=== PATIENT | female | born 1950 | race Caucasian/White ===

== ENCOUNTER → 2017-01-08 | Outpatient (CLI) | payer OTHER, MEDICARE ==
[~2017-01-08] MED LIST: ACET-1256 PO; CHOL100010 PO; CLON0.5T3 PO; CYAN10005 PO; LEVO100T84 PO; TRAM-10 PO
[2017-01-08 10:10] LABS: CHOLESTEROL/HDL RATIO 3.1; THYROID STIMULATING HORMONE 1.5 uIu/ml (0.300-4.500)
== END | disposition home or self-care (01) ==
LOC: C.LAB1850 07:49
PROVIDERS: ATTEND Internal Medicine
DX: E03.9 Hypothyroidism, unspecified (principal); E78.5 Hyperlipidemia, unspecified; R73.9 Hyperglycemia, unspecified; E53.8 Deficiency of other specified B group vitamins; E55.9 Vitamin D deficiency, unspecified

== ENCOUNTER → 2017-08-20 | Outpatient (CLI) | payer OTHER, MEDICARE ==
--- NOTE | 2017-08-20 14:32 | MAMMOGRAPHY REPORT ---
BILATERAL DIGITAL SCREENING MAMMOGRAM TOMOSYNTHESIS WITH CAD: 08/20/2017 CLINICAL HISTORY: Routine screening. Patient has no complaints. TECHNIQUE: Bilateral breast tomosynthesis in addition to standard 2D mammography was performed. Curre nt study was also evaluated with a Computer Aided Detection (CAD) system. COMPARISON: Comparison is made to exams dated: 08/17/2016 mammogram, 08/15/2015 mammogram, 4 mammogram, 07/23/2013 mammogram, 07/25/2012 mammogram, and 07/17/2012 mammogram - [facility]. BREAST COMPOSITION: There are scattered areas of fibroglandular density in both breasts. FINDINGS: There is a 6 mm nodular asymmetry in the slightly inferior, middle to posterior right alec st on the MLO view (MLO tomosynthesis slice 19/70), not definitely seen on the CC view but thought to project laterally based on the tomosynthesis localizer bar. Additional spot compression tomosynthes is views and possible ultrasound are recommended although this could represent normal overlapping fib roglandular tissue. There is a stable metallic biopsy marker in the 6:00 left breast and a few scattered benign-appearing calcifications bilaterally. No other suspicious mass, architectural distortion or cluster of microca lcifications is seen. IMPRESSION: ACR BI-RADS CATEGORY 0: INCOMPLETE EVALUATION: NEED ADDITIONAL IMAGING EVALUATION The 6 mm nodular asymmetry in the inferior right breast on the MLO view needs additional evaluation. The patient will be called to schedule an appointment. Approximately 10% of breast cancers are not detected with mammography. A negative mammographic report should not delay biopsy if a clinically suggestive mass is present. Jane Sesay M.D. ay/:08/20/2017 10:06:21 Phlebotomy Technician: Fanny Foley, [facility] letter sent: Addl Imaging 0 BI-RADS Code: ACR BI-RADS Category 0: Incomplete Evaluation: Need Additional Imaging Evaluation
== END | disposition home or self-care (01) ==
LOC: C.MAMM 09:21
PROVIDERS: ATTEND Obstetrics & Gynecology
DX: Z12.31 Encounter for screening mammogram for malignant neoplasm of breast (principal); N64.89 Other specified disorders of breast

== ENCOUNTER → 2017-12-23 | Outpatient (CLI) | payer OTHER, MEDICARE ==
--- NOTE | 2017-12-24 13:04 | MAMMOGRAPHY REPORT ---
UNILATERAL RIGHT DIGITAL DIAGNOSTIC MAMMOGRAM TOMOSYNTHESIS AND TARGETED RIGHT ULTRASOUND: 12/23/2017 CLINICAL HISTORY: Callback from screening mammography for a 6 mm asymmetry in the inferior, middle to posterior right breast on the MLO view. TECHNIQUE: Spot compression right CC and MLO 2D and tomosynthesis images, full-field right MLO 2D and tomosynthesis images were obtained. COMPARISON: Comparison is made to exams dated: 08/20/2017 mammogram, 08/17/2016 mammogram, 5 mammogram, 07/26/2014 mammogram, 07/23/2013 mammogram, and 07/25/2012 mammogram - [facility]. BREAST COMPOSITION: There are scattered areas of fibroglandular density in the right breast. FINDINGS: Initially, spot compression CC and MLO 2D and tomosynthesis images were obtained, which dem onstrated effacement of the previously observed nodular asymmetry in the inferior, middle to posterio r right breast. Given that the screening mammogram was performed 4 months ago, a full field right ML O view was obtained for confirmation. On the full-field view, there is an equal to low-density 5 mm nodular asymmetry, slightly less conspicuous comparing to the July 2017 mammogram. No associated architectural distortion or calcification. No other new suspicious findings are identified in the r ight breast. Further evaluation with ultrasound was performed. Targeted ultrasound was performed in the lateral right breast, approximate 8:00 through 10:00 axes, b ased on the location of slice 15/71 on the tomosynthesis localizer bar. There is a small hypoechoic nodular area in the 8:00 right breast, 6 cm from the nipple, measuring 3.3 x 2.0 x 5.0 mm, in which t he patient reported pain over this area while scanning. This could represent a prominent fat lobule or focal duct ectasia. It is not thought to correlate with the mammographic finding. There is promi nent X shaped focal duct ectasia in the 9:00 right breast which may correlate with the mammographic f inding. No evidence of a suspicious solid or cystic mass. IMPRESSION: ACR-BI-RADS CATEGORY 3: PROBABLY BENIGN, TARGETED ULTRASOUND ACR-BI-RADS CATEGORY 3: PRO BABLY BENIGN Slightly less prominent nodular asymmetry in the inferior, middle to posterior right breast on repeat mammography, and no suspicious sonographic correlate identified. Nevertheless, a short interval fol low-up right diagnostic tomosynthesis mammogram and possible ultrasound is recommended to ensure stab ility in 6 months. These results and recommendations were discussed with the patient at the time of the exam. Approximately 10% of breast cancers are not detected with mammography. A negative mammographic report should not delay biopsy if a clinically suggestive mass is present. Jane Sesay M.D. ay/:12/23/2017 14:01:31 Greeter Guest Services: Fanny KWON(Karlo)(M), [facility] letter sent: Follow Up Recommended 3 BI-RADS Code: ACR-BI-RADS Category 3: Probably Benign Ultrasound BI-RADS: ACR-BI-RADS Category 3: Pr obably Benign
== END | disposition home or self-care (01) ==
LOC: C.MAMM 09:44
PROVIDERS: ATTEND Obstetrics & Gynecology
DX: R92.8 Other abnormal and inconclusive findings on diagnostic imaging of breast (principal); N64.89 Other specified disorders of breast

== ENCOUNTER → 2018-01-06 | Outpatient (CLI) | payer OTHER, MEDICARE ==
--- NOTE | 2018-01-06 10:05 | DIAGNOSTIC IMAGING REPORT ---
CERVICAL SPINE 2 OR 3 VIEWS HISTORY: 67 years-old Female M54.2 Neck pain acute neck pain COMPARISON: Chest radiographs 07/02/2014 TECHNIQUE: 3 views of the cervical spine FINDINGS: Moderate intervertebral disc space narrowing at C3-C4 and C5-C6. There is 3 mm anterolisthesis C4 on C5 with at least moderate multilevel facet arthrosis. No acute fracture identified. 2 mm retrolisthesis C3 on C4. Multilevel uncovertebral spurring. No prevertebral soft tissue swelling. Calcifications of the left neck suggest atherosclerosis of the carotid vasculature. Imaged lung apices appear clear. IMPRESSION: 1. No acute fracture identified. 2. Multilevel endplate spurring, facet arthrosis and intervertebral disc space narrowing as above with 2 mm retrolisthesis C3 on C4 and 3 mm anterolisthesis C4 on C5, likely secondary to long-standing facet disease. The above report was generated using voice recognition software. It may contain grammatical, syntax or spelling errors. Electronically signed by: Reinier Gillespie M.D. 01/06/2018 10:04 AM Dictated Date/Time: 01/06/2018 10:01 AM
== END | disposition home or self-care (01) ==
LOC: C.RAD1850 09:39
PROVIDERS: ATTEND Physician Assistant
DX: M54.2 Cervicalgia (principal)

== ENCOUNTER → 2018-01-07 | Outpatient (CLI) | payer OTHER, MEDICARE ==
[2018-01-07 10:30] LABS: ALBUMIN 3.8 gm/dl (3.4-5.0); ALT/SGPT 23 U/L (12-78); AST/SGOT 16 U/L (15-37); BLOOD UREA NITROGEN 14 mg/dl (7-18); CALCIUM 9.4 mg/dl (8.5-10.1); CARBON DIOXIDE 31 mmol/L (21-32); CHOLESTEROL 202 mg/dl (0-200); CREATININE 0.69 mg/dl (0.60-1.20); GLUCOSE 87 mg/dl (70-99); POTASSIUM 4.1 mmol/L (3.5-5.1); SODIUM 140 mmol/L (136-145); TRANSFERRIN 311 mg/dl (200-360)
[2018-01-07 10:34] LABS: ALKALINE PHOSPHATASE 105 U/L (45-117); LDL CHOLESTEROL CALCULATED 124 mg/dl; TOTAL PROTEIN 7.4 gm/dl (6.4-8.2)
== END | disposition home or self-care (01) ==
LOC: C.LAB1850 08:57
PROVIDERS: ATTEND Internal Medicine
DX: Z11.59 Encounter for screening for other viral diseases (principal); E53.8 Deficiency of other specified B group vitamins; E55.9 Vitamin D deficiency, unspecified; E78.5 Hyperlipidemia, unspecified; R73.9 Hyperglycemia, unspecified; G25.81 Restless legs syndrome

== ENCOUNTER → 2018-02-14 | Outpatient (CLI) | payer OTHER, MEDICARE | END | disposition home or self-care (01) | LOC: C.LAB1850 09:34 | PROVIDERS: ATTEND Internal Medicine | DX: E03.9 Hypothyroidism, unspecified (principal) ==

== ENCOUNTER → 2018-05-14 | Outpatient (CLI) | payer OTHER, MEDICARE ==
[~2018-05-14] MED LIST changes: -CLON0.5T3 PO; +KLN/5 PO
--- NOTE | 2018-05-14 13:01 | DIAGNOSTIC IMAGING REPORT ---
MRI OF THE CERVICAL SPINE WITHOUT IV CONTRAST CLINICAL HISTORY: Cervicalgia. COMPARISON STUDY: Radiographs of the cervical spine dated 01/06/2018. TECHNIQUE: MRI of the cervical spine is performed utilizing various T1 and T2 weighted sequences in the axial and sagittal planes. IV contrast was not administered for this examination. FINDINGS: Cervical spine: Vertebral body height is maintained throughout the cervical spine. There is minimal retrolisthesis at C3-C4 and minimal anterolisthesis at C4-C5. Alignment is otherwise preserved. The spinous processes appear intact. The atlantodental articulation appears maintained. No destructive bony process or marrow edema is seen. Intervertebral discs: Degenerative disc desiccation is seen throughout the cervical spine. Mild loss of height is seen from C3-C4 through C5-C6. Spinal cord: The cervical spinal cord is normal in morphology. There is a 12 mm focus of T2 signal abnormality identified within the right aspect of the cord at C5-C6. No additional foci of signal abnormality are identified in the cervical cord. C2-C3: Unremarkable. C3-C4: A tiny posterior disc osteophyte complex eccentric to the left minimally effaces the ventral subarachnoid space. Uncovertebral and facet arthropathy cause moderate to severe left and mild right neural foraminal stenosis. C4-C5: A minimal posterior disc osteophyte complex is of no consequence. Uncovertebral and facet arthropathy cause severe right and mild left neural foraminal stenosis. C5-C6: A tiny posterior disc osteophyte complex is of no consequence. Uncovertebral and facet arthropathy cause moderate left greater than right neural foraminal stenosis. C6-C7: The central canal and neural foramina are patent. Tiny nerve sheath cysts versus pseudomeningoceles are noted within the neural foramina bilaterally. C7-T1: Unremarkable. Soft tissues: The prevertebral and paraspinous soft tissues are within normal limits. Brain parenchyma: The partially imaged brain parenchyma at the skull base is normal in appearance. IMPRESSION: 1. There is no disc herniation or central canal stenosis. 2. Mild multilevel cervical spondylosis as above. See discussion for detailed level by level analysis. 3. There is a 12 mm focus of signal abnormality identified within the right aspect of the cervical cord at C5-C6. This is of indeterminant etiology and chronicity. This could be related to a remote insult, could represent a demyelinating process such as multiple sclerosis, or could be seen in the setting of Lyme disease. Clinical correlation will be essential. Dictated: 05/14/2018 12:30 PM Transcribed: 05/14/2018 1:01 PM [facility] Electronically signed by: Garrison Mejia M.D. 05/14/2018 1:04 PM Dictated Date/Time: 05/14/2018 12:30 PM
== END | disposition home or self-care (01) ==
LOC: C.MRIBC 11:10
PROVIDERS: ATTEND Orthopaedic Surgery Orthopaedic Surgery of the Spine
DX: M47.12 Other spondylosis with myelopathy, cervical region (principal)

== ENCOUNTER → 2018-05-20 | Outpatient (CLI) | payer OTHER, MEDICARE | END | disposition home or self-care (01) | LOC: C.LAB1850 15:32 | PROVIDERS: ATTEND Internal Medicine | DX: M25.50 Pain in unspecified joint (principal) ==

== ENCOUNTER 2019-02-06 06:31 | Inpatient (IN) ==
--- NOTE | 2019-01-19 11:01 | Anesthesiology Consultation ---
Date of Service January 19, 2019 Assessment & Plan (1) Encounter for pre-operative examination: History Surgery Operation Date: 02/06/19 12:10 Proposed Procedures p Left Total Shoulder Arthroplasty - Gene Lawson DO Height/Weight Height: 5 ft 3 in Weight: 86.183 kg Allergies Allergy/AdvReac Type Severity Reaction Status Date / Time aspirin Allergy Severe Chest Pain Verified 01/14/19 07:51 hydrocodone Allergy Mild RASH Verified 01/14/19 07:51 Medications Home Medications Medication Instructions Recorded Confirmed Last Taken acetaminophen [Tylenol 8 Hour] 650 mg PO Q12H PRN 01/14/19 01/14/19 Unknown cholecalciferol (vitamin D3) 5,000 unit PO QAM 01/14/19 01/14/19 Unknown [Vitamin D3] clonazepam 0.5 mg PO HS PRN 01/14/19 01/14/19 Unknown levothyroxine 100 mcg PO 6XWK 01/14/19 01/14/19 Unknown tramadol 25 mg PO BID 01/14/19 01/14/19 Unknown Social History Smoking Status: Never smoker Do You Dip or Chew Tobacco: No Hx Alcohol Use: Yes Alcohol type: wine alcohol intake frequency: a few times a month Hx Substance Use: No substance use type: does not use Review of Systems Patient denies chest pain, shortness of breath, dyspnea on exertion, joint pain, reflux, cough, wheezing, palpitations. Physical Exam Vital Signs BP: P: R: T: SPO2:
--- NOTE | 2019-01-19 11:04 | PAT Medication Instructions ---
Medication Instructions Date of Service January 19, 2019 Home Medications acetaminophen [Tylenol 8 Hour] 650 mg PO Q12H as needed cholecalciferol (vitamin D3) 5,000 unit PO QAM clonazepam 0.5 mg PO HS as needed levothyroxine 100 mcg PO 6XWK tramadol 25 mg PO BID DO NOT take the morning of surgery cholecalciferol (vitamin D3) 5,000 unit PO QAM Take morning of surgery With a small sip of water, OTHERWISE NOTHING TO EAT OR DRINK AFTER MIDNIGHT: acetaminophen [Tylenol 8 Hour] 650 mg PO Q12H as needed levothyroxine 100 mcg PO 6XWK tramadol 25 mg PO BID (stop 4 hours before surgery) Take evening before surgery acetaminophen [Tylenol 8 Hour] 650 mg PO Q12H as needed clonazepam 0.5 mg PO HS as needed tramadol 25 mg PO BID Other Notes If you have any questions please call us at [phone] or [phone] or [phone] or [phone]
--- NOTE | 2019-01-19 11:54 | Anesthesiology Consultation ---
Date of Service January 19, 2019 Assessment & Plan (1) Encounter for pre-operative examination: Chart Review Chart Review: Acceptable Risk for Surgery and Patient seen in Pre Admission Testing Teaching & Discussion Pre-Anesthesia Teaching/Discussion Notes: Instructed NPO after midnight before surgery,except medications with 15 cc of water. Medication instructions provided according to the PAT guidelines. History Surgery Operation Date: 02/06/19 12:10 Proposed Procedures p Left Total Shoulder Arthroplasty - Gene Lawson, Height/Weight Height: 5 ft 3 in Weight: 92 kg Allergies Allergy/AdvReac Type Severity Reaction Status Date / Time aspirin Allergy Severe Chest Pain Verified 01/14/19 07:51 hydrocodone Allergy Mild RASH Verified 01/14/19 07:51 Medications Home Medications Medication Instructions Recorded Confirmed Last Taken acetaminophen [Tylenol 8 Hour] 650 mg PO Q12H PRN 01/14/19 01/14/19 Unknown cholecalciferol (vitamin D3) 5,000 unit PO QAM 01/14/19 01/14/19 Unknown [Vitamin D3] clonazepam 0.5 mg PO HS PRN 01/14/19 01/14/19 Unknown levothyroxine 100 mcg PO 6XWK 01/14/19 01/14/19 Unknown tramadol 25 mg PO BID 01/14/19 01/14/19 Unknown Past Medical History Medical History Obesity Cancer 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 Hypothyroidism Osteoarthritis Restless leg syndrome Past Family History Family History Brother Family history of diabetes mellitus Mother Family history of diabetes mellitus Past Surgical History Surgical History H/O foot surgery RT FOOT SURGERY WITH HARDWARE History of bilateral tubal ligation History of colonoscopy History of dilatation and curettage History of tonsillectomy History of tooth extraction History of total abdominal hysterectomy and bilateral salpingo-oophorectomy History of total hip arthroplasty RT History of total knee replacement RT/LEFT Past Anesthesia History No Family Hx of Anesthesia Complications and Other Awareness with knee surgery (2002); no similar issues with other surgeries. History of PONV No Motion Sickness Screening History of Motion Sickness: Yes Social History Smoking Status: Never smoker Do You Dip or Chew Tobacco: No Hx Alcohol Use: Yes Alcohol type: wine alcohol intake frequency: a few times a month Hx Substance Use: No substance use type: does not use Exercise / Class Metabolic Activity III < 4 Walking/Shop/Light housework (USES CANE PRN) Review of Systems Patient denies chest pain, shortness of breath, reflux, cough, wheezing, palpitations. Physical Exam Vital Signs VITALS BP 142/57 P 61 TEMP 97.4 SP02 99%RA RESP 16 PHYSICAL Full neck and c-spine range of motion. Full TMJ range of motion. TMD 3 finger breaths Mallampati Score 2 Dentition: upper front veneers Lungs: clear throughout to auscultation Cardiac: regular rate and rhythm, II/ systolic murmur Spine: normal Carotid arteries: negative bruit Extremities: no edema Testing Electrocardiogram Date: 01/19/19 Findings: + NSR @ (63) Chest X-Ray Date: 01/19/19 Findings: + NAD Mitral annular calcifications are noted. Stress Test Date: 05/27/13 Type: DSE Rest ECHO: Mild MR/TR. Mild LAD. LVEF 60%. Stress ECHO: Negative DSE for myocardial ischemia at 98% MPHR. No chest pain. Laboratory Results 01/19/19 11:46 01/19/19 11:40 Blood Type B Negative 01/19/19 11:46 Antibody Screen NEGATIVE 01/19/19 11:46 PT 10.3 Seconds (9.0-12.0) 01/19/19 11:46 INR 1.0 (0.9-1.1) 01/19/19 11:46 APTT 26.9 Seconds (21.0-31.0) 01/19/19 11:46 Urine Color Yellow 01/19/19 Unknown Urine Appearance Clear (Clear) 01/19/19 Unknown Urine pH 6.5 (4.5-7.5) 01/19/19 Unknown Ur Specific [place] 1.005 (1.000-1.030) 01/19/19 Unknown Urine Protein Negative (Negative) 01/19/19 Unknown Urine Glucose (UA) Negative (Negative) 01/19/19 Unknown Urine Ketones Negative (Negative) 01/19/19 Unknown Urine Nitrite Negative (Negative) 01/19/19 Unknown Ur Leukocyte Esterase Negative (Negative) 01/19/19 Unknown
[2019-01-19 12:10] LABS: Basophils # (auto) 0.01 K/uL (0-0.2); Basophils % (auto) 0.2 %; Eosinophils % (auto) 1.8 %; Hematocrit (blood only) 39.7 % (37-47); Hemoglobin 13.6 g/dL (12.0-16.0); Immature Granulocytes # (auto) 0.01 K/uL (0.00-0.02); Immature Granulocytes % (auto) 0.2 %; Lymphocytes # (auto) 1.58 K/uL (1.2-3.4); Lymphocytes % (auto) 28.1 %; Mean Corpuscular Hgb Conc 34.3 g/dL (32-36); Mean Corpuscular Volume 93.4 fL (80-100); Mean Platelet Volume 10.5 fL (7.4-10.4); Monocytes # (auto) 0.38 K/uL (0.11-0.59); Monocytes % (auto) 6.7 %; Neutrophils # (auto) 3.55 K/uL (1.4-6.5); Platelet Count 213 K/uL (130-400); RDW Coefficient of Variation 12.9 % (11.5-14.5); RDW Standard Deviation 43.7 fL (36.4-46.3); Red Blood Count 4.25 M/uL (4.2-5.4); White Blood Count 5.63 K/uL (4.8-10.8)
[2019-01-19 12:14] LABS: Appearance Urine Clear (Clear); Bilirubin Urine Negative (Negative); Blood Urine Negative (Negative); Color Urine Yellow; Glucose Urine UA Negative (Negative); Ketones Urine Negative (Negative); Leukocyte Esterase Urine Negative (Negative); Nitrite Urine Negative (Negative); Protein Urine Negative (Negative); Specific Gravity Urine 1.005 (1.000-1.030); Urobilinogen Urine Negative (Negative); pH Urine 6.5 (4.5-7.5)
[2019-01-19 12:20] LABS: BUN Creatinine Ratio 19.4 (10-20); Calcium 9.7 mg/dl (8.5-10.1); Creatinine Clr Calc Pharmacy 80.6 ml/min; Est GFR (African American) 101.7; Est GFR (Non-African American) 87.8
[2019-01-19 12:27] LABS: Partial Thromboplastin Time 26.9 Seconds (21.0-31.0); Prothrombin Time 10.3 Seconds (9.0-12.0)
--- NOTE | 2019-01-19 12:29 | XRay Report ---
XR chest Pre-admission PA/Lat HISTORY: 68 years-old Female pat preoperative exam COMPARISON: Chest radiograph 07/02/2014 TECHNIQUE: PA and lateral views of the chest FINDINGS: Cardiac mediastinal and hilar silhouettes are within normal limits. No pneumothorax, pleural effusion , focal airspace consolidation or overt pulmonary edema. Mitral annular calcifications are noted. Deg enerative changes of the shoulders and spine. IMPRESSION: No acute process. The above report was generated using voice recognition software. It may contain grammatical, syntax o r spelling errors. Electronically signed by: Reinier Gillespie M.D. 01/19/2019 12:28 PM
--- OUTSIDE RECORDS SUMMARY | 2019-01-26 15:05 | External Medical Summary | Continuity of Care Document ---
:1950 Author Name Dorie Hightower, Provider Address Unavailable Unavailable , Care Team Providers Name Role Phone Kunal So LIU Unavailable [email or web address] Kim Hightower, Sola Unavailable [email or web address] Tootie Hightower, Puja Unavailable Keshavo [email or web address] Joslyn ALSTON, Jojo Unavailable [email or web address] Jamin Hightower, Yaa Abarca Unavailable [email or web address] [email or web address] NAPOLEON JARAMILLO M.D., V Unavailable Unavailab le Unavailable Unavailable Unavailable Problems Nephrolithiasis (592.0) (N20.0) Obesity (278.00) (E66.9) Rosacea (695.3) (L71.9) Anxiety disorder (300.00) (F41.9) Encounter for routine gynecological exam ination with Papanicolaou smear of cervix (V72.31) (Z01.419) Disc degeneration, lumbar (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) Cyst of kidney, acquired (593.2) (N28.1) Osteoarthritis (715.90) (M19.90) Osteoporosis screening (V82.81) (Z13.820) Pain in both feet (729.5) (M79.671) Chronic constipation (564.00) (K59.09) Gait disturbance (781.2) (R26.9) Hyperglycemia (790.29) (R73.9) Inconclusive mammogram (793.82) (R92.2) Deformity of both feet (736.70) (M21.961) Arthralgia of multiple sites (719.49) (M25.50) Neck pain (723.1) (M54.2) Restless legs syndrome (333.94) (G25.81) Numbness (782.0) (R20.0) Demyelinating disorder (341.9) (G37.9) Abnormal MRI, cervical spine (793.7) (R93.7) Left shoulder pain (719.41) (M25.512) Neck stiffness (723.5) (M43.6) Elevated blood pressure reading without diagnosis of hypertension (796.2) (R03.0) Colon polyps (211.3) (K63.5) Influenza vaccine needed (V04.81) (Z23) 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 Katja Neville Start: 19-Jan-2019 Quantity: 10 Refills: 0 D-3-5 5000 UNIT Oral Capsule; once daily with heaviest meal of the day Katja Sommers Start: 12-Jan-2015 Quantity: 30 Ralitsa Refills: 5 traMADol HCl - 50 MG Oral Tablet; TAKE H CUSTODIAL TABLET BY MOUTH AT BEDTIME AND HALF TABLET IN THE MORNING Katja Sommers Start: 12-Apr-2014 Quantity: 30 [place] Refills: 0 Tylenol Extra Strength TABS; Take 650mg every 12h Napoleon Venegas M.D. Start: 12-Apr-2014 Refills: 0 [place] clonazePAM 0.5 MG Oral Tablet; TAKE 1/2 to 1 TABLET D AILY NEEDED FOR RLS Katja Sommers Quantity: 30 [place]al[place]a Refills: 0 MiraLax Oral Powder; MIX 1 CAPFUL IN 8 O UNCES OF WATER AND DRINK AT BEDTIME NEEDED FOR CONSTIPATION. Katja Alvarez Start: 25-Jul-2011 Refills: 0 Levothyroxine Sodium 100 MCG Oral Tablet; take 1 table t by mouth once daily Katja Sommers Start: 23-Jun-2018 Quantity: 90 Ralitsa Refills: 2 PEG-3350/Electrolytes 236 GM Oral Soluti on Reconstituted; MIX AND DRINK PER SPLIT DOSE INSTRUCTIONS NOE Syed Start: 19-Jan-2019 Quantity: 1 Refills: 0 Procedures Ultra TSH Date: 26-Jan-2019 Vitamin B12 Date: 26-Jan-2019 Vitamin D, 25-Hydroxy Date: 26-Jan-2019 History of Tubal Ligation Status: Comple alexandra History of Knee Replacement Status: Comp leted History of Total Hip Replacement Status: Completed History of Bx Breast Percutan Needle Core Use Status: Completed Imag Guide (Stereotactic) History of Knee Replacement Status: Comp leted History of Tonsillectomy Status: Complet ed History of Oral Surgery Tooth Extraction Status: Completed History of Dilation And Curettage Status : Completed History of Laparoscopy With Total Hysterectomy Status: Completed History of Salpingo-oophorectomy Bilateral Status: Completed Immunizations Tdap (Adacel) On: 07-Jan-2008 0:00 Influenza On: 23-Jul-2012 10:15 Lot #: [id number], [employer] Pneumococcal polysaccharide vaccine, 23 valent On: 14-Jun-20 14 13:29 Lot #: [id number], [employer] Fluzone High-Dose Intramuscular Suspension On: 14-Jul-2015 9 :04 Lot #: [id number], [employer] Zostavax 39702 UNT/0.65ML Subcutaneous Solution Recons tituted On: 15-Aug-2015 15:18 Lot #: [id number], [employer] Fluzone High-Dose Intramuscular Suspension On: 17-Aug-2016 1 5:51 Lot #: [id number], [employer] Fluzone High-Dose Intramuscular Suspension On: 2016 Prevnar 13 Intramuscular Suspension On: 14-Feb-2018 9:24 Lot #: [id number], [employer] [place]. Fluzone High-Dose Intramuscular Suspension On: 31-Jul-2018 16 :04 Lot #: [id number], [employer] Family History Brother Family history of Acute Myocardial Infarction (V17.3) Status : Active Family history of Acute Myocardial Infarction (V17.3) Status : Active Family history of CABG Status: Active Family history of Coronary Artery Disease (V17.49) Status: A ctive Family history of Diabetes Mellitus (V18.0) Status: Active Family history of Coronary Artery Disease (V17.49) Status: A ctive Family history of Diabetes Mellitus (V18.0) Status: Active Mother Family history of Acute Myocardial Infarction (V17.3) Status : Active Family history of Alzheimer Disease Status: Active Family history of Hypertension (V17.49) Status: Active Father Family history of Alzheimer Disease Status: Active Social History - Smoking Status Never smoker Plan of Treatment Planned Encounters Appointment; Jojo Jorgensen DO Start: 14-Aug-2019 9:00 Re quest Planned Observations Planned Goals not documented Results CBC With DIFF (Pending) Laboratory: [facility] Laboratory [address] [facility] [address] tel: 19-Jan-2019 11:46 WBC 5.63 K/uL Range: 4.8-10.8 K/u L RBC 4.25 {M/uL} Range: 4.2-5.4 M/uL HEMOGLOBIN 13.6 g/dL Range: 12.0-16.0 g /dL HEMATOCRIT 39.7 % Range: 37-47 % MCV 93.4 fL Range: 80-100 fL MCH 32.0 pg Range: 25-34 pg MEAN CORPUSCULAR HGB CONC 34.3 Range: 3 2-36 g/dL g/dL RED CELL DISTRIBUTION WIDTH SD Range: 3 6.4-46.3 fL 43.7 fL RED CELL DISTRIBUTION WIDTH CV Range: 1 1.5-14.5 % 12.9 % PLATELET COUNT 213 K/uL Range: 130-400 K/uL MEAN PLATELET VOLUME 10.5 fL Range: 7.4 -10.4 fL (above high threshold) NEUT % 63.0 % Range: % LYMPH % 28.1 % Range: % MONO % 6.7 % Range: % EOS % 1.8 % Range: % BASO % 0.2 % Range: % IG% 0.2 % Range: % Comments: IG paramet er reflects the combination of Metas, Myelos andPromyelocytes. Neutrophils (Auto) 3.55 K/uL Range: 1. 4-6.5 K/uL LYMPH ABS # 1.58 K/uL Range: 1.2-3.4 K/ uL MONO ABS # 0.38 K/uL Range: 0.11-0.59 K /uL EOS ABS # 0.10 K/uL Range: 0-0.5 K/uL BASO ABS # 0.01 K/uL Range: 0-0.2 K/uL IG# 0.01 K/uL Range: 0.00-0.02 K/ uL Urine rflx Microscopic Laboratory: [facility] Laboratory [address] Com ments: Asha Zuniga (Pending) [address]. [facility] [address] tel: 19-Jan-2019 0:00 Urine Color Yellow Urine Appearance Clear Range: Clear Urine Specific [employer] 1.005 Range: 1.0 00-1.030 Urine Ph 6.5 Range: 4.5-7.5 Urine Protein(Dipstick) Negative Range: Negative Urine Glucose(Dipstick) Negative Range: Negative Urine Ketones Negative Range: Negative Urine Bilirubin Negative Range: Negativ e URINE BLOOD HGB Negative Range: Negativ e Urobilinogen Negative Range: Negative Nitrite Urine Negative Range: Negative Urine Leukocyte Esterase Negative Range: Negative Basic Metabolic Panel Laboratory: [facility] Laboratory [address] (Pending) [address]. [facility] [address] tel: 19-Jan-2019 11:40 SODIUM 141 mmol/L Range: 136-145 mmol /L POTASSIUM 4.0 mmol/L Range: 3.5-5.1 mmo l/L CHLORIDE 105 mmol/L Range: 98-107 mmol/ L CARBON DIOXIDE 30 mmol/L Range: 21-32 m mol/L ANION GAP 6.0 Range: 3-11 BLOOD UREA NITROGEN 14 mg/dl Range: 7-1 8 mg/dl CREATININE 0.70 mg/dl Range: 0.6-1.2 mg /dl Estimated Creatinine Clearance Range: m l/min 80.6 ml/min Comments: Est. Creat inine Clearance (Mod Cockcroft-Gault) for pharmacydosing purposes. Estimated GFR () Comment s: Units: ml/min per 101.7 1.73 meters squaredT he estimated GFR (CKD-E PI equation) has not be en validatedfor inpatie nt settings and may not be an accurate reflectiono f renal function in critical ly ill patients or those withrapidly changing renal function (e.g. SEGUNDO). Estimated GFR (Non- Comments: Uni ts: ml/min per [place]uran) 87.8 1.73 meters squaredT he estimated GFR (CKD-E PI equation) has not be en validatedfor inpatie nt settings and may not be an accurate reflectiono f renal function in critical ly ill patients or those withrapidly changing renal function (e.g. SEGUNDO). BUN/CREATININE RATIO 19.4 Range: 10-20 GLUCOSE 96 mg/dl Range: 70-99 mg/dl CALCIUM 9.7 mg/dl Range: 8.5-10.1 mg/ dl PT/INR (Pending) Laboratory: [facility] Laboratory [address] [facility] [address] tel: 19-Jan-2019 11:46 Prothrombin Time 10.3 {Seconds} Range: 9.0-12.0 Seconds INR 1.0 Range: 0.9-1.1 PTT (Pending) Laboratory: [facility] Laboratory [address] [facility] [address] tel: 19-Jan-2019 11:46 PTT PATIENT 26.9 {Seconds} Range: 21.0- 31.0 Seconds Comments: Therapeuti c APTT range is 46.0 - 66.4 seconds PARTIAL THROMBOPLASTIN RATIO 1.0 X-Ray Chest Preadm Laboratory: [facility] Diagnostic Testing (Pending) Imaging [address] [facility] 19-Jan-2019 12:26 X-Ray Chest Preadm Testing (CXRPRE) [facility] [place] [phone] XRay Report Patient: KENYON BRISCOE Admit Date: 01/19/19 MR#: [id number] Address1: [address] [place] [address] Acct ID:[id number] Address2: Date: 1950 [facility] Zip: [place] [address] Age: 68 Location: ASU Sex: F Room/Bed: Att Phy: Gene Lawson DO Diagnosis: De generative Joint Disorder, Left Shoulder Alissa Phy: RV. Sommers MD Servi ce Date: 01/19/19 Fam Phy: Interpreting Phy: Sim Decker her Admit Phy: Ordering Phy: Gene Lawson DO cc: XR chest Pre-admission PA/Lat HISTORY: 68 years-old Female pat preoperative exam COMPARISON: Chest radiograph 07/02/2014 TECHNIQUE: PA and lateral views of the chest FINDINGS: Cardiac mediastinal and hilar silhouettes are within normal limits. No pneumothorax, pleural effusion, focal airspace consolidation or overt pulmonary edema. Mitral annular calcifications are noted. Degenerative changes of the shoulders and spine. IMPRESSION: No acute process. The above report was generated using voice recognition software. It may contain grammatical, syntaxor spelling errors. Electronically signed by: Reinier Gillespie M.D. 01/19/2019 12:28 PM Dictated: 01/19/19 1226 Transcribed: 01/19/19 1226 Urine Culture (Pending) 19-Jan-2019 0:00 URINE CULTURE CATH ORDERED PROCEDURE : Urine Culture; Speciment : Urine,Clean Catch Urine Culture : More than three types of organisms present, all low countsUrine Culture : mixed probable skin chirag. No further identifications orUrine Culture : sensitivities to follow. Mammo SCREENING BILATERAL Laboratory: [facility] Diagnostic JASSI Imaging [address] [facility] 19-Jan-2019 8:24 SCREENING BILATERAL JASSI [facility], [address] [place] [address], [address] [place], [address] Mammography Report Patient: KENYON BRISCOE Admit Date: 01/19/19 MR#: [id number] Address1: [address] [place] [address] Acct ID:[id number] Address2: Date: 1950 [facility] Zip: [place] [address] Age: 68 Location: MAMMO Sex: F Room/Bed: Att Phy: RV. Sommers MD Diagn osis: ASYMPTOMATIC Alisas Phy: RV. Sommers MD Servi ce Date: 01/19/19 [facility] Phy: Interpreting Phy: Jane landeros MD Admit Phy: Ordering Phy: Puja Corbett MD DICTATED BY: Jane Sesay MD cc: RV. Sommers MD BILATERAL DIGITAL SCREENING MAMMOGRAM TOMOSYNTHESIS WITH CAD: 01/19/2019 CLINICAL HISTORY: Routine screening. Patient has no complaints. TECHNIQUE: Breast tomosynthesis in addition to standard 2D mammography was performed. Current studywas also evaluated with a Computer Aided Detection (CAD) system. COMPARISON: Comparison is made to exams dated: 06/26/2018 mammogram, 12/23/2017 mammogram, 08/20/2017 mammogram, 08/17/2016 mammogram, 08/15/2015 mammogram, and 07/26/2014 mammogram - [facility]. BREAST COMPOSITION: There are scattered areas of fibroglandular density in both breasts. FINDINGS: Stable asymmetries in the lateral right breast and slightly medial subareolar left breast. Scattered benign-appearing microcalcifications and a stable metallic biopsy clip in the 6:00 posterior left breast. No new suspicious mass, architectural distortion or cluster of microcalcifications is seen. IMPRESSION: ACR BI-RADS CATEGORY 1: NEGATIVE There is no mammographic evidence of malignancy. A 1 year screening mammogram is recommended.(01/20/2020) The patient will receive written notification of the results. Some breast cancers are not detected with mammography. A negative mammographic report should not delay biopsy if a clinically suggestive mass is present. Jane Sesay M.D. ay/:01/19/2019 17:04:58 Senior Devops Engineer: RT Ronald(Karlo)(Sabra)(BD), [facility] letter sent: Normal 1/2 BI-RADS Code: ACR BI-RADS Category 1: Negative Signed By: Jane Sesay MD 01/19/19 1704 Created: 01/19/19 0824 Transcribed: 01/19/191703 Chimney Repairer: JORDIN The status of this report is Signed. Draft = Not yet reviewed or approved by Medical Physician. Signed = Reviewed and approved by Medical Physician. Encounters Appointment; Mariaelena Rivera M.D. 13-Aug-2018 11:20 Encounter Diagnosis: Problem not documented Appointment; Puja Sommers, M.D. 31-Jul-2018 15:40 Encounter Diagnosis: Problem not documented Appointment; Brissa Herrera DO 25-Jul-2018 16:20 Encounter Diagnosis: Problem not documented Appointment; Brissa Herrera DO 25-Jun-2018 15:00 Encounter Diagnosis: Problem not documented Appointment; Stefanie Bran PA-C 03-Jun-2018 13:45 Encounter Diagnosis: Problem not documented Appointment; Puja Sommers M.D. 8 8:40 Encounter Diagnosis: Problem not documented Appointment; Stefanie Bran PA-C 06-Jan-2018 9:15 Encounter Diagnosis: Problem not documented Appointment; Stefanie Bran PA-C 24-Dec-2017 9:15 Encounter Diagnosis: Problem not documented Appointment; Puja Sommers M.D. 7 14:20 Encounter Diagnosis: Problem not documented Appointment; Mariaelena Rivera M.D. 12-Aug-2017 8:20 Encounter Diagnosis: Problem not documented Appointment; Stefanie Bran PA-C 26-Jun-2017 15:15 Encounter Diagnosis: Problem not documented Appointment; Puja Sommers M.D. 7 7:40 Encounter Diagnosis: Problem not documented Appointment; Jojo Jorgensen DO 14-Aug-2019 9:00 Encounter Diagnosis: Problem not documented
--- NOTE | 2019-02-04 07:56 | History & Physical Report ---
Date of Service February 04, 2019 Assessment & Plan (1) Primary osteoarthritis of left shoulder: We will proceed with a left total shoulder arthroplasty. Postoperatively she will be placed in a sling and kept in the hospital overnight for postoperative medical management. She plans to use energy physical therapy upon discharge. Present on Admission?: Yes History of Present Illness Chief Complaint: Primary osteoarthritis of the left shoulder Primary Care Provider: Puja Mcrae MD Rita is a pleasant 68-year-old female who is been dealing with chronic left shoulder pain. X-rays do not look too bad. I sent her for an MRI. The MRI did show advanced arthritis of the glenohumeral joint. I have been giving her injections. Unfortunately injections are not helping much. Her shoulder is really bothering her. After long discussions in the office, she has elected to proceed with a left total shoulder arthroplasty. Allergies Allergy/AdvReac Type Severity Reaction Status Date / Time aspirin Allergy Severe Chest Pain Verified 01/28/19 12:08 hydrocodone Allergy Mild RASH Verified 01/28/19 12:08 Home Medications Home Medications Medication Instructions Recorded Confirmed Type acetaminophen [Tylenol 8 Hour] 650 mg PO Q12H PRN 01/14/19 01/28/19 History cholecalciferol (vitamin D3) 5,000 unit PO QAM 01/14/19 01/28/19 History [Vitamin D3] clonazepam 0.5 mg PO HS PRN 01/14/19 01/28/19 History levothyroxine 100 mcg PO 6XWK 01/14/19 01/28/19 History tramadol 25 mg PO BID 01/14/19 01/28/19 History Past Med/Surg History Family History Brother Family history of diabetes mellitus Mother Family history of diabetes mellitus Social History Preferred Language: Ethiopian Communication Ability: Effective Catering Attendant Required: No Beliefs That Will Affect Care: None Current Living Situation: Spouse Other Information That Helps Us Care for You: No Feels Safe at Home: Yes Safety Concerns: Feels Safe At This Time Smoking Status: Never smoker Do You Dip or Chew Tobacco: No Second Hand Exposure: No Tobacco Cessation Education Requested by Patient: No Hx Alcohol Use: Yes Alcohol type: wine Hx Substance Use: No Review of Systems All systems reviewed & are unremarkable except as noted in HPI & below Physical Exam Constitutional: WD/WN, vitals as above Eyes: PERRL, conjunctivae normal, anicteric sclerae ENMT: external ear and nose normal, oropharynx normal Neck: trachea midline, no thyromegaly Respiratory: normal respiratory effort Cardiovascular: RRR, no murmur, no edema Gastrointestinal (Abdomen): normal bowel sounds, soft, nontender, no hepatosplenomegaly Musculoskeletal: Physical examination of the left shoulder reveals decreased range of motion and crepitis throughout. There is good strength with full can testing and external rotation. There is tenderness palpation along the anterior glenohumeral joint line. The right upper extremity is neurovascularly intact. Psychiatric: A+Ox3, euthymic affect Results & Data Diagnostic Findings Radiographs of the left shoulder show very mild osteoarthritis of the glenohumeral joint. MRI of the left shoulder does show advanced osteoarthritis with loss of articular cartilage on both the humeral head and the glenoid.
[~2019-02-06 06:31] MED LIST changes: -ACET-1256 PO; +ACETAMINOPHEN 500 MG TAB PO SCH; +BUPIVACAINE 0.5 % 5 MG/1 ML PF 10ML VIAL ONE; +CEFAZOLIN 2000MG 2,000 MG/15 ML SYR IV SCH; -CHOL100010 PO; -CYAN10005 PO; +FAMOTIDINE 20 MG TAB PO SCH; +GABAPENTIN 300 MG PO SCH; -KLN/5 PO; -LEVO100T84 PO; +LR 15ML/HR IV SCH; +LR 60ML/HR IV SCH; +ROPIVACAINE 0.5% HCL/PF 150 MG, BUPIVACAINE 0.5% MPF 30 ML, EPINEPHrine 30MG/30ML (OR U... INFIL SCH; -TRAM-10 PO; +TRANEXAMIC ACID 1,000 MG **IV Intra-op IV SCH; +TRANEXAMIC ACID 1,000 MG **IV Pre-op IV SCH
[2019-02-06] MEDS ORDERED: MIDAZOLAM HCL 1 MG/ML 2ML VIAL ONE (06:47)
[2019-02-06] MEDS ORDERED: fentaNYL citrate 100 MCG/2 ML VIAL ONE (06:47)
--- NOTE | 2019-02-06 06:51 | History & Physical Bridge Note ---
Date of Service February 06, 2019 History & Physical Bridge Note I have examined the patient, reviewed the History & Physical and in the interval since the performance of the History & Physical I have noted the following changes of clinical significance: no changes noted
[2019-02-06] MEDS ORDERED: POVIDONE-IODINE OP SOLN 30 ML BTL ONE (07:12)
[2019-02-06] MEDS ORDERED: ORTHO JOINT ANESTHETIC ONE (07:12)
--- NOTE | 2019-02-06 07:50 | Anesthesiology Consultation ---
Date of Service February 06, 2019 Assessment & Plan (1) Encounter for pre-operative examination: Chart Review Chart Review: Acceptable Risk for Surgery Consults Requested none ASA ASA2 Proposed Anesthesia Anesthesia Type: General Regional Regional Laterality: Left Site: Interscalene Risk / Benefits Reviewed With: PT / POA / Parent / Guardian, Accepts Plan and Informed Consent Obtained History Surgery Operation Date: 02/06/19 08:50 Proposed Procedures p Left Total Shoulder Arthroplasty - Gene Lawson, Height/Weight Height: 5 ft 3 in Weight: 88.8 kg Allergies Allergy/AdvReac Type Severity Reaction Status Date / Time aspirin Allergy Severe Chest Pain Verified 01/28/19 12:08 hydrocodone Allergy Mild RASH Verified 01/28/19 12:08 Medications Home Medications Medication Instructions Recorded Confirmed Last Taken acetaminophen [Tylenol 8 Hour] 650 mg PO Q12H PRN 01/14/19 02/06/19 02/04/19 cholecalciferol (vitamin D3) 5,000 unit PO QAM 01/14/19 02/06/19 01/30/19 [Vitamin D3] clonazepam 0.5 mg PO HS PRN 01/14/19 02/06/19 01/23/19 levothyroxine 100 mcg PO 6XWK 01/14/19 02/06/19 02/06/19 05:30 tramadol 25 mg PO BID 01/14/19 02/06/19 02/05/19 22:00 Active Medications Generic Name Dose Route Start Last Admin Trade Name Freq PRN Reason Stop Dose Admin Acetaminophen 1,000 mg 02/06/19 06:00 02/06/19 07:00 Tylenol PO 02/06/19 18:00 1,000 mg PREOP KELVIN Administration Famotidine 20 mg 02/06/19 06:00 02/06/19 07:01 Pepcid PO 02/06/19 18:00 20 mg PREOP KELVIN Administration Gabapentin 300 mg 02/06/19 06:00 02/06/19 07:01 Neurontin PO 02/06/19 18:00 300 mg PREOP KELVIN Administration Lactated Ringer's 1,000 mls @ 60 mls/hr 02/06/19 06:00 02/06/19 07:00 Lr IV 02/06/19 22:39 60 mls/hr .[id number] KELVIN Administration NPO Date Last Intake of Fluids: 02/05/19 Time Last Intake of Fluids: 18:00 Date Last Intake of Solids: 02/05/19 Time Last Intake of Solids: 18:00 Past Medical History Medical History Cancer 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 Hypothyroidism Osteoarthritis Restless leg syndrome Obesity Exercise / Class Metabolic Activity III < 4 Walking/Shop/Light housework Past Family History Family History Brother Family history of diabetes mellitus Mother Family history of diabetes mellitus Past Surgical History Surgical History H/O foot surgery RT FOOT SURGERY WITH HARDWARE History of bilateral tubal ligation History of colonoscopy History of dilatation and curettage History of tonsillectomy History of tooth extraction History of total abdominal hysterectomy and bilateral salpingo-oophorectomy History of total hip arthroplasty RT History of total knee replacement RT/LEFT Past Anesthesia History No Hx of Anesthesia Complications and No Family Hx of Anesthesia Complications History of PONV No Hx of PONV and No Hx of Motion Sickness Social History Smoking Status: Never smoker Do You Dip or Chew Tobacco: No Hx Alcohol Use: Yes Alcohol type: wine alcohol intake frequency: a few times a month Hx Substance Use: No substance use type: does not use Physical Exam Vital Signs Last Vital Signs Temp 98.4 F 02/06/19 07:05 Pulse 70 02/06/19 07:05 Resp 18 02/06/19 07:05 BP 150/83 H 02/06/19 07:05 Pulse Ox 97 02/06/19 07:05 ENMT Mouth: no dentition abnormality Thyromental Distance: > or= 3.5 Finger Breadths Mallampati Class: II Neck normal visual inspection Respiratory normal respiratory effort Auscultation: lungs clear to auscultation bilaterally Cardiovascular Rate/Rhythm: regular rate and regular rhythm Testing Electrocardiogram Date: 01/19/19 Findings: + NSR @ (63) Chest X-Ray Date: 01/19/19 Findings: + NAD Mitral annular calcifications are noted. Stress Test Date: 05/27/13 Type: DSE Rest ECHO: Mild MR/TR. Mild LAD. LVEF 60%. Stress ECHO: Negative DSE for myocardial ischemia at 98% MPHR. No chest pain. Laboratory Results 01/19/19 11:46 01/19/19 11:40 Blood Type B Negative 01/19/19 11:46 Antibody Screen NEGATIVE 01/19/19 11:46 PT 10.3 Seconds (9.0-12.0) 01/19/19 11:46 INR 1.0 (0.9-1.1) 01/19/19 11:46 APTT 26.9 Seconds (21.0-31.0) 01/19/19 11:46 Urine Color Yellow 01/19/19 Unknown Urine Appearance Clear (Clear) 01/19/19 Unknown Urine pH 6.5 (4.5-7.5) 01/19/19 Unknown Ur Specific [place] 1.005 (1.000-1.030) 01/19/19 Unknown Urine Protein Negative (Negative) 01/19/19 Unknown Urine Glucose (UA) Negative (Negative) 01/19/19 Unknown Urine Ketones Negative (Negative) 01/19/19 Unknown Urine Nitrite Negative (Negative) 01/19/19 Unknown Ur Leukocyte Esterase Negative (Negative) 01/19/19 Unknown 01/19/19 Unknown Urine Culture - Final Urine,Clean Catch More than three types of organisms present, all low counts mixed probable skin chirag. No further identifications or sensitivities to follow.
[2019-02-06] MEDS ORDERED: fentaNYL citrate 100 MCG/2 ML VIAL IV PRN (07:53)
[2019-02-06] MEDS ORDERED: ATROPINE SULFATE 0.1 MG/ML 10ML SYR IV PRN (07:53)
[2019-02-06] MEDS ORDERED: ePHEDrine sulfate 50 MG/ML AMP IV PRN (07:53)
[2019-02-06] MEDS ORDERED: ONDANSETRON INJ 2 MG/ML 2 ML VIAL IV PRN ×2 (07:53→11:20)
[2019-02-06] MEDS ORDERED: PROPOFOL IV EMULSION 10 MG/ML 20 ML VIAL IV ONE (09:20)
[2019-02-06] MEDS ORDERED: LIDOCAINE HCL 2% 2 ML VIAL/AMP(20MG/ML) INFIL ONE (09:20)
[2019-02-06] MEDS ORDERED: GLYCOPYRROLATE 0.2 MG/ML VIAL ONE (09:20)
[2019-02-06] MEDS ORDERED: DEXAMETHASONE SOD INJ 4 MG/ML VIAL ONE (09:20)
[2019-02-06] MEDS ORDERED: ONDANSETRON INJ 2 MG/ML 2 ML VIAL ONE (09:20)
[2019-02-06] MEDS ORDERED: ROCURONIUM BROMIDE 10 MG/ML 5 ML VIAL ONE (09:20)
[2019-02-06] MEDS ORDERED: NEOSTIGMINE METHYLSULFATE 5 MG/5 ML SYR ONE (09:20)
--- NOTE | 2019-02-06 09:51 | Operative Report ---
Post Operative Report Pre & Post Diagnosis Operation Date: 02/06/19 08:50 Pre-Op Diagnosis: Degenerative Joint Disorder, Left Shoulder Post-Op Diagnosis: Degenerative Joint Disorder, Left Shoulder Procedure Operation Date: 02/06/19 08:50 Actual Procedures p Left Total Shoulder Arthroplasty(Left) - Gene Lawson DO Surgeon Gene Lawson DO Senior Production Manager Gene Patel PAC Estimated Blood Loss 100 Findings Consistent with Post-Op Diagnosis Specimens Left humeral head Complications none Disposition Disposition: Recovery Room Indications Rita is a pleasant 68-year-old female who presented my office with complaints of chronic increasing left shoulder pain. X-rays did not look too bad. I sent her for an MRI of her shoulder and the MRI showed advanced osteoarthritis. I gave her multiple injections but unfortunately the injections did not last very long. She elected to proceed with a left total shoulder arthroplasty. Description of Procedure Implants used: I used a Biomet Comprehensive total shoulder arthroplasty system with a size 7 press fit mini humeral stem, a size 42 x 18 eccentric humeral head, and a small size glenoid with a Regenerex peg. The glenoid was cemented in place with Palacos G cement. The patient arrived at [facility] for the above procedure. There were seen in the preoperative holding area and the operative extremity was identified and signed. They were given a preoperative antibiotic and an interscalene nerve block. They were taken back to the operating room, laid on table in supine position, and put under general anesthesia. They were then put into the beachchair position. The shoulder was then prepped and draped in sterile fashion. A timeout was done and the patient in the operative extremity was properly identified. A deltopectoral approach was used. Dissection was taken down through the fascia and the deltoid was retracted laterally and the conjoined tendon was retracted medially. The anterior shoulder was exposed. The long head of the biceps tendon was tenodesed to the upper border of the pectoralis major. The subscapularis was then released off the lesser tuberosity with a centimeter of cuff tissue remaining. The inferior capsule was released and the humeral head was dislocated. The rotator cuff was inspected and intact. A canal finding reamer was sent down the center of the humeral canal. Sequential reaming up to a size 7 reamer was done. Offset reamer a proximal humeral resection guide was placed. The proximal humerus was resected at 135 of inclination and 30 of retroversion. Inferior osteophytes were then removed and the glenoid was exposed. Time was spent doing an appropriate labral release. The glenoid measured to be a size small. A 3.2 mm Steinmann pin was placed in the central hole of the glenoid vault pin guide. The glenoid was then reamed with a propeller reamer. The central post cutter was then used to prepare for the central boss. The cannulated peripheral peg drill guide was then placed and 3 peg holes were drilled. The final size small glenoid was then cemented in place with Palacos G cement. Surrounding soft tissues were then injected with 100 cc of an orthopedic pain control cocktail. Once cement had dried the proximal humerus was once again exposed. Sequential broaching of the humerus up to a size 7 broach was done. Off that broach a size 42 x 18 eccentric humeral head was trialed. The shoulder was then reduced, brought through a full range of motion and felt to be stable. The shoulder was then dislocated and the broach was removed. The final size 7 mini humeral stem implant was then impacted into place. A size 42 x 18 eccentric humeral head was then impacted onto the humeral stem. The shoulder was then reduced and once again brought through a full range of motion and felt to be stable. The subscapularis was then tenodesed back to the lesser tuberosity with transosseous FiberWire sutures and side to side sutures with the arm in 45 of external rotation. 2 sutures were placed in the lateral rotator interval. A dilute betadyne lavage was then done for 3 minutes. The joint was then irrigated with normal saline solution. Hemostasis was obtained. The skin was then closed with 2-0 Vicryl, 3-0V lock suture, and lea. A soft dressing was placed as well as a regular arm sling. The patient was then extubated and transferred to a hospital bed. There were taken to the postanesthesia care unit in stable condition. The tolerated the procedure well. I attest to the content of the Intraoperative Record and any orders documented therein. Any exceptions are noted below.
--- NOTE | 2019-02-06 10:29 | XRay Report ---
XR shoulder LT min 2V routine HISTORY: 68 years-old Female Post shoulder surgery left shoulder total joint arthroplasty COMPARISON: Chest radiograph 01/19/2019 TECHNIQUE: 2 views of the left shoulder FINDINGS: Left shoulder total joint arthroplasty demonstrates satisfactory alignment. Overlying skin lea ar e noted along with expected postsurgical soft tissue swelling and deep tissue air. No acute fracture or retained foreign body. IMPRESSION: Left shoulder total joint arthroplasty demonstrates satisfactory alignment. The above report was generated using voice recognition software. It may contain grammatical, syntax o r spelling errors. Electronically signed by: Reinier Gillespie M.D. 02/06/2019 10:27 AM
[2019-02-06] MEDS ORDERED: NALOXONE HCL 0.4 MG/1 ML VIAL/CARP IV PRN (11:20)
[2019-02-06] MEDS ORDERED: METOCLOPRAMIDE HCL INJ 5 MG/ML 2 ML VIAL IV PRN (11:20)
[2019-02-06] MEDS ORDERED: HYDROmorphone INJ 0.5 MG/0.5 ML SYR IV PRN (11:20)
[2019-02-06] MEDS ORDERED: clonazePAM 0.5 MG TAB PO PRN (11:20)
[2019-02-06] MEDS ORDERED: TRAMADOL HCL 50 MG TABLET PO PRN (11:20)
[2019-02-06] MEDS ORDERED: BISACODYL 10 MG SUPP PR PRN (11:20)
[2019-02-06] MEDS ORDERED: SODIUM CHLORIDE 0.9% 1000ML 1,000 ML IV SCH (11:20)
[2019-02-06] MEDS ORDERED: MAGNESIUM HYDROXIDE SUSP 30 ML UDC PO PRN (11:20)
--- NOTE | 2019-02-06 13:07 | Anesthesiology Progress Note ---
Date of Service February 06, 2019 Anesthesia Post Procedure Vital Signs Vital Signs: Temp Pulse Pulse Pulse Resp BP BP 02/06/19 12:00 97.3 F L 58 L 16 151/80 H 02/06/19 11:30 97.3 F L 60 16 145/81 H 02/06/19 11:00 97.3 F L 64 16 150/85 H 02/06/19 10:55 59 L 14 02/06/19 10:51 58 L 12 145/72 H 02/06/19 10:50 59 L 12 02/06/19 10:46 61 14 151/75 H 02/06/19 10:40 64 16 156/77 H 02/06/19 10:36 64 15 153/76 H 02/06/19 10:35 63 13 02/06/19 10:31 67 20 152/77 H 02/06/19 10:25 65 15 156/77 H 02/06/19 10:22 69 14 155/78 H 02/06/19 10:20 74 21 02/06/19 10:16 83 24 158/84 H 02/06/19 10:12 97.2 F L 86 93 H 21 152/87 H 152/87 H 02/06/19 07:05 98.4 F 70 18 150/83 H Pulse Ox 02/06/19 12:00 96 02/06/19 11:30 96 02/06/19 11:00 99 02/06/19 10:55 98 02/06/19 10:51 98 02/06/19 10:50 99 02/06/19 10:46 98 02/06/19 10:40 98 02/06/19 10:36 99 02/06/19 10:35 98 02/06/19 10:31 100 02/06/19 10:25 99 02/06/19 10:22 100 02/06/19 10:20 100 02/06/19 10:16 100 02/06/19 10:12 100 02/06/19 07:05 97 Pain Intensity Left Shoulder: Pain Intensity: 0 Transfer of Care Handoff Completed per policy Notes Mental Status: alert / awake / arousable and participated in evaluation Patient Amnestic to Procedure: Yes Nausea / Vomiting: adequately controlled Pain: adequately controlled Airway Patency, RR, SpO2: stable & adequate BP & HR: stable & adequate Hydration State: stable & adequate Anesthetic Complications: no major complications apparent and Pt Satisfied with anesthetic care
[2019-02-06] MEDS: ACETAMINOPHEN 500 MG TAB PO SCH ×2 (13:32→20:42)
[2019-02-06] MEDS: KETOROLAC TROMETHAMINE 15 MG/ML VIAL IV SCH ×3 (13:33→23:19)
[2019-02-06] MEDS: LEVOTHYROXINE SODIUM 100 MCG TABLET PO SCH (13:33)
[2019-02-06] MEDS: CEFAZOLIN 2000MG 2,000 MG/15 ML SYR IV SCH ×2 (15:26→23:19)
[2019-02-06] MEDS: DOCUSATE SODIUM 100 MG CAP PO SCH (20:42)
[2019-02-06] MEDS ORDERED: SENNA 8.6 MG TAB PO SCH (21:00)
[2019-02-07] MEDS: KETOROLAC TROMETHAMINE 15 MG/ML VIAL IV SCH (05:16)
[2019-02-07] MEDS: LEVOTHYROXINE SODIUM 100 MCG TABLET PO SCH (05:16)
[2019-02-07] MEDS: ACETAMINOPHEN 500 MG TAB PO SCH (05:17)
[2019-02-07 06:08] LABS: Basophils # (auto) 0.01 K/uL (0-0.2); Basophils % (auto) 0.1 %; Eosinophils # (auto) 0.01 K/uL (0-0.5); Eosinophils % (auto) 0.1 %; Hematocrit (blood only) 36.4 % (37-47); Hemoglobin 13.1 g/dL (12.0-16.0); Immature Granulocytes # (auto) 0.04 K/uL (0.00-0.02); Immature Granulocytes % (auto) 0.3 %; Lymphocytes # (auto) 1.19 K/uL (1.2-3.4); Lymphocytes % (auto) 9.4 %; Mean Corpuscular Volume 90.3 fL (80-100); Mean Platelet Volume 10.3 fL (7.4-10.4); Monocytes # (auto) 0.82 K/uL (0.11-0.59); Monocytes % (auto) 6.5 %; Neutrophils # (auto) 10.55 K/uL (1.4-6.5); Neutrophils % (auto) 83.6 %; Platelet Count 215 K/uL (130-400); RDW Coefficient of Variation 12.7 % (11.5-14.5); RDW Standard Deviation 41.8 fL (36.4-46.3); Red Blood Count 4.03 M/uL (4.2-5.4); White Blood Count 12.62 K/uL (4.8-10.8)
[2019-02-07 06:46] LABS: BUN Creatinine Ratio 23.8 (10-20); Calcium 8.9 mg/dl (8.5-10.1); Est GFR (African American) 87.9; Est GFR (Non-African American) 75.8; Potassium 3.5 mmol/L (3.5-5.1)
[2019-02-07] MEDS: DOCUSATE SODIUM 100 MG CAP PO SCH (08:00)
--- NOTE | 2019-02-07 08:21 | Orthopedic Progress Note ---
Date of Service February 07, 2019 Assessment & Plan (1) Primary osteoarthritis of left shoulder: Overall she is doing very well. She is not having much pain in the left shoulder. She will be seen by physical therapy this morning for range of motion exercises. She has tramadol at home that she will use for pain. She will be discharged home later this morning with energy physical therapy. She will follow-up with orthopedics in 2 weeks. Present on Admission?: Yes Minesh Salinas was seen and examined at bedside this morning. Overall she is doing very well. She is not having much pain in the shoulder. She was able to get some sleep last night. She has no complaints. Physical Exam Musculoskeletal: On physical examination of the left shoulder, the dressing is clean and dry. She is wearing her sling as instructed. Her radial, median, and ulnar nerves are checked and intact at the wrist. Her axillary nerve was not checked yet. Results & Data Vital Signs (Past 12 Hours) Vital Signs Temp Pulse Resp BP Pulse Ox 02/07/19 02:26 36.4 C L 60 16 130/80 96 02/06/19 23:06 36.6 C 71 16 109/67 96 Laboratory Results H & H 01/19/19 02/07/19 Range/Units 11:46 05:28 Hgb 13.6 13.1 (12.0-16.0) g/dL Hct 39.7 36.4 L (37-47) % Coagulation 01/19/19 Range/Units 11:46 INR 1.0 (0.9-1.1) Diagnostic Findings Postoperative x-rays of the left shoulder show the prosthesis to be in anatomic alignment without any evidence of fracture, dislocation, or loosening.
--- NOTE | 2019-02-07 08:22 | Discharge Summary ---
Date of Service February 07, 2019 Admission HPI Per Admitting Provider Rita is a pleasant 68-year-old female who is been dealing with chronic left shoulder pain. X-rays do not look too bad. I sent her for an MRI. The MRI did show advanced arthritis of the glenohumeral joint. I have been giving her injections. Unfortunately injections are not helping much. Her shoulder is really bothering her. After long discussions in the office, she has elected to proceed with a left total shoulder arthroplasty. Specialty Data Orthopedic H & H 01/19/19 02/07/19 Range/Units 11:46 05:28 Hgb 13.6 13.1 (12.0-16.0) g/dL Hct 39.7 36.4 L (37-47) % Coagulation 01/19/19 Range/Units 11:46 INR 1.0 (0.9-1.1) Discharge Data Consultations 02/06/19 11:20 Consult Case Management - Discharge Planning Routine Procedures Performed Operation Date: 02/06/19 08:50 Actual Procedures p Left Total Shoulder Arthroplasty(Left) - Gene Lawson DO Hospital Course (1) Primary osteoarthritis of left shoulder: On February 06, 2019 Rita arrived at [facility] and underwent a left total shoulder arthroplasty without complication. She had a general anesthetic and a left interscalene nerve block. Postoperatively she was placed in an arm sling and discharged to general orthopedic floors. Her hospital course was uneventful. On postop day #1 her H&H was stable and her pain was well controlled. She was able to do range of motion exercises with physical therapy. She was then discharged home. She already had a prescription of tramadol at home. She will get energy physical therapy. She will follow-up with orthopedics in 2 weeks. Discharge Instructions Home Medications Medication Instructions Recorded Confirmed acetaminophen [Tylenol 8 Hour] 650 mg PO Q12H PRN 01/14/19 02/06/19 cholecalciferol (vitamin D3) 5,000 unit PO QAM 01/14/19 02/06/19 [Vitamin D3] clonazepam 0.5 mg PO HS PRN 01/14/19 02/06/19 levothyroxine 100 mcg PO [id number] 01/14/19 02/06/19 tramadol 25 mg PO BID 01/14/19 02/06/19
--- NOTE | 2019-02-07 08:57 | Anesthesiology Progress Note ---
Date of Service February 07, 2019 Anesthesia Post Procedure Vital Signs Vital Signs: Temp Pulse Pulse Pulse Resp BP BP 02/07/19 08:25 36.6 C 71 18 120/81 02/07/19 02:26 36.4 C L 60 16 130/80 02/06/19 23:06 36.6 C 71 16 109/67 02/06/19 20:14 36.6 C 66 18 110/67 02/06/19 15:31 36.3 C L 65 18 114/72 02/06/19 14:00 36.5 C 66 18 136/78 02/06/19 13:00 36.3 C L 68 18 143/79 H 02/06/19 12:00 36.3 C L 58 L 16 151/80 H 02/06/19 11:30 36.3 C L 60 16 145/81 H 02/06/19 11:00 36.3 C L 64 16 150/85 H 02/06/19 10:55 59 L 14 02/06/19 10:51 58 L 12 145/72 H 02/06/19 10:50 59 L 12 02/06/19 10:46 61 14 151/75 H 02/06/19 10:40 64 16 156/77 H 02/06/19 10:36 64 15 153/76 H 02/06/19 10:35 63 13 02/06/19 10:31 67 20 152/77 H 02/06/19 10:25 65 15 156/77 H 02/06/19 10:22 69 14 155/78 H 02/06/19 10:20 74 21 02/06/19 10:16 83 24 158/84 H 02/06/19 10:12 36.2 C L 86 93 H 21 152/87 H 152/87 H Pulse Ox 02/07/19 08:25 94 02/07/19 02:26 96 02/06/19 23:06 96 02/06/19 20:14 96 02/06/19 15:31 95 02/06/19 14:00 97 02/06/19 13:00 97 02/06/19 12:00 96 02/06/19 11:30 96 02/06/19 11:00 99 02/06/19 10:55 98 02/06/19 10:51 98 02/06/19 10:50 99 02/06/19 10:46 98 02/06/19 10:40 98 02/06/19 10:36 99 02/06/19 10:35 98 02/06/19 10:31 100 02/06/19 10:25 99 02/06/19 10:22 100 02/06/19 10:20 100 02/06/19 10:16 100 02/06/19 10:12 100 Pain Intensity Left Shoulder: Pain Intensity: 0 Notes Mental Status: alert / awake / arousable and participated in evaluation Patient Amnestic to Procedure: Yes Nausea / Vomiting: adequately controlled Pain: adequately controlled Airway Patency, RR, SpO2: stable & adequate BP & HR: stable & adequate Hydration State: stable & adequate Anesthetic Complications: no major complications apparent and Pt Satisfied with anesthetic care
[2019-02-07] MEDS ORDERED: MULTIVITAMIN TAB PO SCH (09:00)
== END 2019-02-07 11:23 | disposition home health service (06) | DRG 483 ==
LOC: ASU 06:31 → 3E 09:54

== ENCOUNTER 2023-05-17 09:07 | Inpatient (IN) ==
--- NOTE | 2023-05-17 09:17 | Emergency Department Note ---
Impression & Plan Substernal chest pain, Elevated troponin level ED Provider Note CHIEF COMPLAINT: Chest Pain HISTORY OF PRESENT ILLNESS: This 72 y/o female patient presents to the emergency department here due to chest pain that woke her up this morning at approx 3:30 am. Pain radiate to scapula, and is associated with nausea, headache, SOB and palpitations worse with inspiration. For a couple of days patient had been feeling more tired than usual. Denied any chest pain during exertion in the past. She denied any syncope/presyncope, lower extremity swelling, vomiting, & diarrhea. Patient with hx of severe aortic valve stenosis that is being followed by cardiology. REVIEW OF SYSTEMS: A review of systems was performed with positives and pertinent negatives listed in the history of present illness. 10 systems were reviewed and are otherwise negative. ALLERGIES: see below MEDICATIONS: see below PMH: see below SOCIAL HISTORY: see below DDx: Cardiac ischemia, aortic dissection, pulmonary embolism, pneumothorax, pneumonia, pericarditis, myocarditis, esophageal rupture, GERD, cholecystitis, pancreatitis, musculoskeletal, as well as other pathologies. PHYSICAL EXAM: Vital signs reviewed. General: Well-appearing 72 yo female, in no significant distress. HEENT: No scleral icterus, PERRLA, neck supple. MMM. Cardiovascular: Regular rhythm and rate. S1 and S2 were normal. High pitched systolic ejection murmur. Pulmonary: Normal work of breathing, fine crackles in right lower lung Abdomen: Soft, nontender, nondistended, positive bowel sounds. Musculoskeletal: Atraumatic, no peripheral edema. Neurologic: Patient awake alert and oriented x 3, speech is clear Skin: Warm, dry, no rash EMERGENCY DEPARTMENT COURSE/MDM: This patient was evaluated and appeared to be in no significant distress. External medical records were reviewed. IV access was obtained and laboratory work was drawn. Patient was placed on the color television console monitor noted to be in normal sinus rhythm. She was medicated with aspirin 324 mg to chew and Pepcid 20 mg IV. Patient was also given 4 mg of Zofran ODT for some nausea. EKG reveals no evidence of acute ischemia. Laboratory work reveals a mildly elevated troponin. Chest x-ray is largely clear. Repeat troponin is trending upward. Patient was evaluated by the hospitalist service for further evaluation and management. Patient is aware of the plan and agrees. MONITORING: An order for cardiac monitoring was placed and the patient is noted to be in a NSR at 82 beats per minute. RADIOLOGY: CXR to my interpretation reveals no evidence of focal lung consolidation or failure, otherwise defer to radiology's over read. EKG: To my interpretation reveals normal sinus rhythm at [address] segments, no PVC, no PAC. QTc of 425. Possible previous anterior infarct. DISPOSITION: Admission Past Med/Surg History Medical History (Updated 05/23/23 @ 11:31 by Dalia Cook MD) Cancer 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 Chronic constipation Colon polyps Demyelinating disorder Encounter for pre-operative examination Endometrioid adenocarcinoma of uterus Hypothyroidism Neck stiffness Obesity Osteoarthritis Restless leg syndrome Right-sided low back pain with right-sided sciatica Surgical History (Updated 02/13/23 @ 09:30 by Puja Mcrae MD) H/O foot surgery RT FOOT SURGERY WITH HARDWARE History of bilateral tubal ligation History of colonoscopy History of dilatation and curettage History of hysterectomy for cancer (05/26/13) History of left shoulder replacement History of tonsillectomy History of tooth extraction History of total abdominal hysterectomy and bilateral salpingo-oophorectomy History of total hip arthroplasty RT History of total knee replacement RT/LEFT Hx of left cataract extraction Status post total replacement of hip (05/26/13) Family History Brother Family history of diabetes mellitus Myocardial infarction Hx of CABG Coronary heart disease Mother Family history of diabetes mellitus Myocardial infarction Hypertension Father Alzheimer disease Social History Smoking Status: Never smoker Second Hand Exposure: No; Do You Dip or Chew Tobacco: No; Hx Alcohol Use: Yes Alcohol type: hard liquor Hx Substance Use: No Preferred Language: Yemeni Communication Ability: Effective Visual Impairment: No Limitations Hearing Ability: Use of Hearing Aid Workforce Management Consultant Required: No Beliefs That Will Affect Care: None marital status: Current Living Situation: Spouse current occupational status: retired Feels Safe at Home: Yes Physical Activity Frequency: 3-4 Times per Week Seatbelt Use: always Assistive Devices: None Allergies Allergies Allergy/AdvReac Type Severity Reaction Status Date / Time acetaminophen [From Vicodin] Allergy Severe Rash Verified 02/13/23 08:56 aspirin Allergy Severe Chest Pain Verified 02/13/23 08:56 hydrocodone [From Vicodin] Allergy Severe Rash Verified 02/13/23 08:56 Home Meds Home Medications Medication Instructions Recorded Confirmed acetaminophen 650 mg 650 mg PO QDL 08/14/19 05/21/23 tablet,extended release (Tylenol 8 Hour) cyanocobalamin (vitamin B-12) 1,000 mcg PO QAM 05/09/21 05/21/23 1,000 mcg tablet (Vitamin B-12) Previous Rx's Medication Instructions Recorded cholecalciferol (vitamin D3) 50 50 mcg PO DAILY #90 caps 01/25/22 mcg (2,000 unit) capsule clonazepam 0.5 mg tablet 0.5 mg PO .COMPLEX #30 tabs 07/03/22 levothyroxine 100 mcg tablet 100 mcg PO 6XWK #90 tabs 03/21/23 tramadol 50 mg tablet 25 mg PO BID pain #30 tabs 05/03/23 metoprolol tartrate 25 mg tablet 25 mg PO BID #60 tabs 05/20/23 aspirin 81 mg tablet,delayed 81 mg PO DAILY #30 tabs 05/21/23 release (Adult Low Dose Aspirin) Results & Data (ED) Vital Signs Vital Signs - 24 hr 05/17/23 09:09 05/17/23 09:22 05/17/23 09:31 Temperature 36.9 C Temperature Source Temporal Artery Scan Pulse Rate 96 H 83 79 Pulse Rate [Apical] Pulse Rate from SpO2 Sensor 79 Respiratory Rate 18 16 Respiratory Effort / Characteristics Non-Labored Respiratory Depth Normal Respiratory Pattern Blood Pressure 167/82 H 141/80 H Blood Pressure [Right Arm] Blood Pressure Mean 110 100 Blood Pressure Mean [Right Arm] Blood Pressure Position Sitting Pulse Oximetry 94 95 Oxygen Delivery Method Room Air Sepsis Recent Fever Within 48 Hours No Sepsis New/Unexplained Change in Mental Status No Sepsis Action Taken by Nursing No Action Required 05/17/23 11:29 05/17/23 11:29 05/17/23 11:29 Temperature Temperature Source Pulse Rate 81 Pulse Rate [Apical] 81 Pulse Rate from SpO2 Sensor Respiratory Rate 16 16 Respiratory Effort / Characteristics Non-Labored Respiratory Depth Normal Respiratory Pattern Regular Blood Pressure Blood Pressure [Right Arm] 126/69 Blood Pressure Mean Blood Pressure Mean [Right Arm] 88 Blood Pressure Position Pulse Oximetry 97 97 97 Oxygen Delivery Method Room Air Room Air Sepsis Recent Fever Within 48 Hours Sepsis New/Unexplained Change in Mental Status Sepsis Action Taken by [facility] Medications Current Medication List: was personally reviewed by me Laboratory Data Attestation: I reviewed the patient's lab results. 05/17/23 09:20 05/17/23 09:20 Lab Results 05/17/23 05/17/23 05/17/23 Range/Units 09:20 09:20 12:07 WBC 10.22 (4.8-10.8) K/ul RBC 4.36 (4.20-5.40) M/uL Hgb 13.8 (12.0-16.0) g/dl Hct 41.1 (37.0-47.0) % MCV 94.3 (80.0-100.0) fL MCH 31.7 (25.0-34.0) pg MCHC 33.6 (32.0-36.0) g/dL RDW Std Deviation 42.6 (36.4-46.3) fL RDW Coeff of Jennifer 12.2 (11.5-14.5) % Plt Count 235 (130-400) K/uL MPV 10.9 (9.4-12.4) fL Immature Gran % (Auto) 0.3 % Neut % (Auto) 81.0 % Lymph % (Auto) 11.1 % Haakon % (Auto) 6.7 % Eos % (Auto) 0.6 % Baso % (Auto) 0.3 % Neut # (Auto) 8.29 H (1.40-6.50) K/uL Lymph # (Auto) 1.13 L (1.2-3.4) K/uL Haakon # (Auto) 0.68 H (0.11-0.59) K/uL Eos # (Auto) 0.06 (0-0.50) K/uL Baso # (Auto) 0.03 (0-0.2) K/uL Immature Gran # (Auto) 0.03 (0.01-0.20) K/uL D-Dimer (0-500) ug/L FEU Sodium 139 (136-145) mmol/L Potassium 4.3 (3.5-5.1) mmol/L Chloride 104 (98-107) mmol/L Carbon Dioxide 29 (21-32) mmol/L Anion Gap 6 (3-11) BUN 16 (6-23) mg/dl Creatinine 0.65 (0.6-1.2) mg/dl Est Cr Clr Drug Dosing 77.7 ml/min Est GFR ( Amer) 101.4 ml/min Est GFR (Non-Af Amer) 87.5 ml/min BUN/Creatinine Ratio 24.6 H (10-20) Glucose 106 H (70-99(Fasting)) mg/dl Calcium 9.4 (8.6-10.3) mg/dl Total Bilirubin 0.9 (0.2-1.0) mg/dl AST 20 (13-39) U/L ALT 13 (7-52) U/L Alkaline Phosphatase 83 (34-104) U/L Troponin I High Sens 40.5 H 37.8 H (0-14) pg/ml Total Protein 7.4 (6.0-8.3) gm/dl Albumin 4.4 (3.4-5.0) gm/dl Globulin 3.0 (2.5-4.0) gm/dl Albumin/Globulin Ratio 1.5 (0.9-2) Lipase 11 (11-82) U/L 08/18/23 Range/Units 12:07 WBC (4.8-10.8) K/ul RBC (4.20-5.40) M/uL Hgb (12.0-16.0) g/dl Hct (37.0-47.0) % MCV (80.0-100.0) fL MCH (25.0-34.0) pg MCHC (32.0-36.0) g/dL RDW Std Deviation (36.4-46.3) fL RDW Coeff of Jennifer (11.5-14.5) % Plt Count (130-400) K/uL MPV (9.4-12.4) fL Immature Gran % (Auto) % Neut % (Auto) % Lymph % (Auto) % Haakon % (Auto) % Eos % (Auto) % Baso % (Auto) % Neut # (Auto) (1.40-6.50) K/uL Lymph # (Auto) (1.2-3.4) K/uL Haakon # (Auto) (0.11-0.59) K/uL Eos # (Auto) (0-0.50) K/uL Baso # (Auto) (0-0.2) K/uL Immature Gran # (Auto) (0.01-0.20) K/uL D-Dimer 380 (0-500) ug/L FEU Sodium (136-145) mmol/L Potassium (3.5-5.1) mmol/L Chloride (98-107) mmol/L Carbon Dioxide (21-32) mmol/L Anion Gap (3-11) BUN (6-23) mg/dl Creatinine (0.6-1.2) mg/dl Est Cr Clr Drug Dosing ml/min Est GFR ( Amer) ml/min Est GFR (Non-Af Amer) ml/min BUN/Creatinine Ratio (10-20) Glucose (70-99(Fasting)) mg/dl Calcium (8.6-10.3) mg/dl Total Bilirubin (0.2-1.0) mg/dl AST (13-39) U/L ALT (7-52) U/L Alkaline Phosphatase (34-104) U/L Troponin I High Sens (0-14) pg/ml Total Protein (6.0-8.3) gm/dl Albumin (3.4-5.0) gm/dl Globulin (2.5-4.0) gm/dl Albumin/Globulin Ratio (0.9-2) Lipase (11-82) U/L Administered Medications Discontinued Medications Acetaminophen (Acetaminophen 325 Mg Tab) 650 mg PO Q4H PRN PRN Reason: Pain or Fever Stop: 06/16/23 15:15 Last Admin: 05/17/23 18:22 Dose: 650 mg Documented By: OKSANA Al Hydrox/Mg Hydrox/Simethicone (Aluminum/Magnesium Susp 30 Ml Udc) 15 ml PO NOW STA Stop: 05/17/23 13:14 Last Admin: 05/17/23 13:56 Dose: 15 ml Documented By: JENNIFER Al Hydrox/Mg Hydrox/Simethicone (Gi Cocktail Ed Use) 1 dose PO ONE ONE Stop: 05/17/23 14:16 Last Admin: 05/17/23 16:54 Dose: Not Given Documented By: OKSANA Aspirin (Aspirin Chew 324 Mg) 324 mg PO NOW STA Stop: 05/17/23 09:37 Last Admin: 05/17/23 10:04 Dose: 324 mg Documented By: OKSANA(2) Aspirin (Aspirin 81 Mg Chew) Confirm Administered Dose 81 mg .ROUTE .STK-MED ONE Stop: 05/20/23 07:48 Last Admin: 05/20/23 07:54 Dose: 81 mg Documented By: EUGENIO Clopidogrel Bisulfate (Clopidogrel Bisulfate 75 Mg Tab) 75 mg PO QAM [facility] Stop: 06/18/23 08:59 Last Admin: 05/20/23 09:35 Dose: 75 mg Documented By: Admin: 05/19/23 09:39 Dose: 75 mg Documented By: SHARI Fentanyl Citrate (Fentanyl Citrate Pf 100 Mcg/2 Ml Vial) Confirm Administered Dose 100 mcg .ROUTE .STK-MED ONE Stop: 05/20/23 07:27 Last Increment: 05/20/23 08:44 Dose: 12.5 mcg Documented By: KELVIN Furosemide (Furosemide Inj 20 Mg/2 Ml Vial) 20 mg IV ONE ONE Stop: 05/17/23 15:11 Last Admin: 05/17/23 16:58 Dose: 20 mg Documented By: OKSANA Furosemide (Furosemide Inj 20 Mg/2 Ml Vial) 20 mg IV ONE ONE Stop: 05/18/23 11:11 Last Admin: 05/18/23 11:40 Dose: 20 mg Documented By: FELIX Heparin Sodium (Porcine) (Heparin (Porcine) 1000 Unit/Ml 10 Ml (Spindle Plumber Use Only)) Confirm Administered Dose 10,000 units .ROUTE .STK-MED ONE Stop: 05/20/23 07:25 Last Admin: 05/20/23 08:43 Dose: 5,000 units Documented By: KELVIN Heparin Sodium/Sodium Chloride (Heparin In Nss Infusion 1000 Unit/500 Ml (2 U/Ml) Bag) Confirm Administered Dose 4,000 units IV .STK-MED ONE Stop: 05/20/23 07:27 Last Admin: 05/20/23 09:27 Dose: Not Given Documented By: HSARI Famotidine (Pepcid 20mg Iv Push) 20 mg in 5 mls @ 2.5 mls/min IV NOW STA Stop: 05/17/23 09:56 Last Admin: 05/17/23 10:04 Dose: 2.5 mls/min Documented By: OKSANA(2) Pantoprazole Sodium 40 mg/ (Syringe) 10 mls @ 5 mls/min IV NOW ONE Stop: 05/17/23 13:31 Last Admin: 05/17/23 13:56 Dose: 5 mls/min Documented By: JENNIFER Levothyroxine Sodium (Levothyroxine Sodium 100 Mcg Tablet) 100 mcg PO [id number] [facility] Stop: 06/17/23 06:29 Last Admin: 05/20/23 06:06 Dose: 100 mcg Documented By: Admin: 05/18/23 06:06 Dose: 100 mcg Documented By: LETHA Metoprolol Tartrate (Metoprolol Tartrate 25 Mg Tab) 25 mg PO BID [facility] Stop: 06/17/23 12:14 Last Admin: 05/20/23 09:35 Dose: 25 mg Documented By: Admin: 05/19/23 20:53 Dose: 25 mg Documented By: Admin: 05/19/23 07:50 Dose: 25 mg Documented By: Admin: 05/18/23 21:12 Dose: 25 mg Documented By: Admin: 05/18/23 12:26 Dose: 25 mg Documented By: FELIX Midazolam HCl (Midazolam Hcl 1 Mg/Ml 2ml Vial) Confirm Administered Dose 2 mg .ROUTE .STK-MED ONE Stop: 05/20/23 07:25 Last Increment: 05/20/23 08:44 Dose: 1 mg Documented By: KELVIN Nicardipine HCl (Nicardipine Hcl Inj 2.5 Mg/Ml 10 Ml Amp) Confirm Administered Dose 25 mg .ROUTE .STK-MED ONE Stop: 05/20/23 07:25 Last Admin: 05/20/23 09:27 Dose: Not Given Documented By: SHARI Nitroglycerin (Nitroglycerin Sl 0.4 Mg/Tab Tab) 0.4 mg SL NOW STA Stop: 05/17/23 11:37 Last Admin: 05/17/23 12:24 Dose: 0.4 mg Documented By: JENNIFER Nitroglycerin/Dextrose (Nitroglycerin/D5w 100mcg/Ml 20ml Syr) Confirm Administered Dose 2,000 mcg .ROUTE .STK-MED ONE Stop: 05/20/23 07:27 Last Admin: 05/20/23 09:28 Dose: Not Given Documented By: SHARI Ondansetron HCl (Ondansetron Inj 2 Mg/Ml 2 Ml Vial) 4 mg IV NOW STA Stop: 05/17/23 09:53 Last Admin: 05/17/23 10:04 Dose: 4 mg Documented By: OKSANA(2) Tramadol HCl (Tramadol Hcl 50 Mg Tablet) 25 mg PO BID KELVIN Stop: 06/18/23 20:59 Last Admin: 05/20/23 09:35 Dose: 25 mg Documented By: Admin: 05/19/23 20:54 Dose: 25 mg Documented By: NAB Imaging Data Radiologist's Impression: Chest X-Ray 05/17/23 09:37 XR chest 1V portable HISTORY: Chest pain, nonspecific COMPARISON: Chest 01/19/2019. FINDINGS: No pneumothorax. No pleural effusions. A few bibasilar linear densities favor subsegmental atelectasis are scarring. Otherwise, lungs are clear. The heart is mildly enlarged. No evidence for pulmonary edema. Left shoulder prosthesis. There are low lung volumes with mild elevation of the right hemidiaphragm. Mitral annulus calcifications are noted. IMPRESSION: 1. Mild cardiomegaly. 2. A few bibasilar linear densities. This favors subsegmental atelectasis. ACT 112: Negative or not required by law. Electronically signed by: Stefan Horan M.D. 05/17/2023 11:16 AM Discharge Plan Visit Data Chief Complaint: Chest Pain Stated Complaint: CHEST PAIN ED Provider: Dalia Cook ED Midlevel Provider: Kathy Bolton Discharge Problem: Substernal chest pain, Elevated troponin level Patient Disposition: Admitted As Inpatient Discharge Instructions Interventions: ED Discharge Assessment Last Done: 05/17/23 14:40 Resident Activity Tracking Resident Involvement: Resident Care Provided Care Provided: Adult ED
[2023-05-17] MEDS ORDERED: ASPIRIN CHEW 324 MG PO STA (09:36)
[2023-05-17] MEDS ORDERED: ONDANSETRON INJ 2 MG/ML 2 ML VIAL IV STA (09:52)
[2023-05-17] MEDS ORDERED: FAMOTIDINE 20MG IV PUSH 20 MG/5 ML SYR IV STA (09:55)
[2023-05-17 10:12] LABS: Basophils # (auto) 0.03 K/uL (0-0.2); Basophils % (auto) 0.3 %; Eosinophils # (auto) 0.06 K/uL (0-0.50); Eosinophils % (auto) 0.6 %; Hematocrit (blood only) 41.1 % (37.0-47.0); Hemoglobin 13.8 g/dl (12.0-16.0); Immature Granulocytes # (auto) 0.03 K/uL (0.01-0.20); Immature Granulocytes % (auto) 0.3 %; Lymphocytes # (auto) 1.13 K/uL (1.2-3.4); Lymphocytes % (auto) 11.1 %; Mean Corpuscular Hemoglobin 31.7 pg (25.0-34.0); Mean Corpuscular Hgb Conc 33.6 g/dL (32.0-36.0); Mean Corpuscular Volume 94.3 fL (80.0-100.0); Mean Platelet Volume 10.9 fL (9.4-12.4); Monocytes # (auto) 0.68 K/uL (0.11-0.59); Monocytes % (auto) 6.7 %; Neutrophils # (auto) 8.29 K/uL (1.40-6.50); Platelet Count 235 K/uL (130-400); RDW Coefficient of Variation 12.2 % (11.5-14.5); RDW Standard Deviation 42.6 fL (36.4-46.3); Red Blood Count 4.36 M/uL (4.20-5.40); White Blood Count 10.22 K/ul (4.8-10.8)
[2023-05-17 10:20] LABS: Albumin Globulin Ratio 1.5 (0.9-2); Albumin Level 4.4 gm/dl (3.4-5.0); BUN Creatinine Ratio 24.6 (10-20); Bilirubin,Total 0.9 mg/dl (0.2-1.0); Calcium 9.4 mg/dl (8.6-10.3); Creatinine Clr Calc Pharmacy 77.7 ml/min; Est GFR (African American) 101.4 ml/min; Est GFR (Non-African American) 87.5 ml/min; Potassium 4.3 mmol/L (3.5-5.1); Total Protein 7.4 gm/dl (6.0-8.3)
[2023-05-17 10:25] LABS: Troponin I High Sensitivity 40.5 pg/ml (0-14)
--- NOTE | 2023-05-17 11:17 | XRay Report ---
XR chest 1V portable HISTORY: Chest pain, nonspecific COMPARISON: Chest 01/19/2019. FINDINGS: No pneumothorax. No pleural effusions. A few bibasilar linear densities favor subsegmental atelectasis are scarring. Otherwise, lungs are clear. The heart is mildly enlarged. No evidence for p ulmonary edema. Left shoulder prosthesis. There are low lung volumes with mild elevation of the right hemidiaphragm. Mitral annulus calcifications are noted. IMPRESSION: 1. Mild cardiomegaly. 2. A few bibasilar linear densities. This favors subsegmental atelectasis. ACT 112: Negative or not required by law. Electronically signed by: Stefan Horan M.D. 05/17/2023 11:16 AM
[2023-05-17] MEDS ORDERED: NITROGLYCERIN SL 0.4 MG/TAB TAB SL STA (11:36)
--- NOTE | 2023-05-17 11:48 | History & Physical Report ---
Date of Service May 17, 2023 Assessment & Plan (1) Chest pain: Plan: 72 y/o with PMHx of moderate aortic stenosis, hypothyroidism, and arthritis who presented with chest pain admitted for ACS r/o. DDx: OR vs unstable angina vs PE vs pericarditis vs GERD vs MSK in nature HsTrop 40.5. EKG with new Q wave in lead III. No significant personal ischemic history. Minimal risk factors - no HTN HLD DM smoking history etc. Strong family history of OR with mother and two brothers. Brothers in their 40s at the time of OR. Mother with severe aortic stenosis who presented with an OR. CP is constant and worsens with inspiration. There is a concern for pericarditis vs PE as well. Will do D-dimer to r/o PE. If positive will proceed with CTA Chest. Consider heparin drip if increasing concern for ACS. Patient received 324 mg ASA in the ED. Will give nitro stat and repeat HsTrop. Will also order stat ECHO and repeat EKG for further eval. Case was discussed with Dr. Lloyd ([facility]) and they will follow along. (2) Aortic stenosis, moderate: Plan: See above (3) Restless legs syndrome: Plan: Patient on clonazepam 0.5 mg PRN at home for RLS. Can continue (4) Hypothyroidism: Plan: Stable on levothyroxine 100 mcg. Continue home med History of Present Illness Chief Complaint: chest pain Primary Care Provider: Puja Mcrae MD 72 y/o with PMHx of severe aortic stenosis, hypothyroidism, and arthritis who presented with chest pain. The chest pain woke her from sleep around 3:30 am with associated SOB. The pain is substernal and radiates through to the back, described as sharp. Patient waited approximately an hour for symptoms to self resolve, since they didn't she then presented to the ED. In the ED she was given 423 mg ASA, zofran, and famotidine. Labs notable for an elevated troponin at 40.5. EKG shows new Q wave in lead III. No ST segment changes. Upon my interview patient reports constant substernal chest pain with radiation to the back described as 3-4/10 in severity. Increases to 7/10 in severity with deep breathing. Patient with no proceeding anginal symptoms. No previous CP at rest or with exertion. Patient does have MCDANIEL. No leg swelling. No nausea, vomiting, abdominal pain. No dizziness or lightheadedness. No diaphoresis or clamminess. No prior cardiac history. No HLD HTN DM. No previous GERD symptoms. Chart review notable for a family history of OR in mother and both brothers < 40 years old. Aortic Stenosis: ECHO 01/2023 - moderate . Asymptomatic - not limiting ADLs Allergies Allergy/AdvReac Type Severity Reaction Status Date / Time acetaminophen [From Vicodin] Allergy Severe Rash Verified 02/13/23 08:56 aspirin Allergy Severe Chest Pain Verified 02/13/23 08:56 hydrocodone [From Vicodin] Allergy Severe Rash Verified 02/13/23 08:56 Home Medications Medication Instructions Recorded Confirmed Type acetaminophen 650 mg 650 mg PO QDL 08/14/19 05/17/23 History tablet,extended release (Tylenol 8 Hour) cyanocobalamin (vitamin B-12) 1,000 mcg PO QAM 05/09/21 05/17/23 History 1,000 mcg tablet (Vitamin B-12) cholecalciferol (vitamin D3) 50 50 mcg PO DAILY #90 caps 01/25/22 05/17/23 Rx mcg (2,000 unit) capsule clonazepam 0.5 mg tablet 0.5 mg PO .COMPLEX #30 tabs 07/03/22 05/17/23 Rx levothyroxine 100 mcg tablet 100 mcg PO 6XWK #90 tabs 03/21/23 05/17/23 Rx tramadol 50 mg tablet 25 mg PO BID pain #30 tabs 05/03/23 05/17/23 Rx Past Med/Surg History Medical History (Updated 05/17/23 @ 12:03 by Jessica Watt MD) Cancer 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 Chronic constipation Colon polyps Demyelinating disorder Encounter for pre-operative examination Endometrioid adenocarcinoma of uterus Hypothyroidism Neck stiffness Obesity Osteoarthritis Restless leg syndrome Right-sided low back pain with right-sided sciatica Surgical History (Updated 02/13/23 @ 09:30 by Puja Mcrae MD) H/O foot surgery RT FOOT SURGERY WITH HARDWARE History of bilateral tubal ligation History of colonoscopy History of dilatation and curettage History of hysterectomy for cancer (05/26/13) History of left shoulder replacement History of tonsillectomy History of tooth extraction History of total abdominal hysterectomy and bilateral salpingo-oophorectomy History of total hip arthroplasty RT History of total knee replacement RT/LEFT Hx of left cataract extraction Status post total replacement of hip (05/26/13) Family History Brother Family history of diabetes mellitus Myocardial infarction Hx of CABG Coronary heart disease Mother Family history of diabetes mellitus Myocardial infarction Hypertension Father Alzheimer disease Social History Smoking Status: Never smoker Second Hand Exposure: No; Do You Dip or Chew Tobacco: No; Hx Alcohol Use: Yes Alcohol type: wine Hx Substance Use: No Preferred Language: Zimbabwean Communication Ability: Effective Visual Impairment: No Limitations Hearing Ability: Use of Hearing Aid Wood Last Maker Required: No Beliefs That Will Affect Care: None marital status: Current Living Situation: Spouse current occupational status: retired Feels Safe at Home: Yes Physical Activity Frequency: 3-4 Times per Week Seatbelt Use: always Assistive Devices: Cane, Glasses and Hearing Aid - Bilateral Review of Systems Review of Systems: See HPI Physical Exam Physical Exam: Gen: non-toxic appearing female in NAD HEENT: AT RI EOMI PERRL Resp: CTAB no wheezing no crackles no increased work of breathing CV: RRR loud 3-4/6 holosystolic murmur best heard LUSB, 2+ peripheral pulses, clinically well perfused, pain does not worsen with palpation of the sternum, no JVD Abd: soft, non-tender, non-distended, no masses or HSM noted Skin: warm, no bruising or rashes noted Extremities: 2+ peripheral pulses, symmetric, no edema Neuro: alert and oriented Psych: appropriate mood and affect Results & Data Results & Data Vital Signs (Past 12 Hours) Vital Signs Temp Pulse Pulse Resp BP BP Pulse Ox 05/17/23 11:29 81 16 126/69 97 05/17/23 11:29 81 16 97 05/17/23 11:29 97 05/17/23 09:31 79 16 141/80 H 95 05/17/23 09:22 83 05/17/23 09:09 36.9 C 96 H 18 167/82 H 94 O2 Del Method 05/17/23 11:29 05/17/23 11:29 Room Air 05/17/23 11:29 Room Air 05/17/23 09:31 05/17/23 09:22 05/17/23 09:09 Room Air Laboratory Results 05/17/23 09:20 05/17/23 09:20 HsTrop 40.5 Diagnostic Findings Chest X-Ray 05/17/23 09:37 XR chest 1V portable HISTORY: Chest pain, nonspecific COMPARISON: Chest 01/19/2019. FINDINGS: No pneumothorax. No pleural effusions. A few bibasilar linear densities favor subsegmental atelectasis are scarring. Otherwise, lungs are clear. The heart is mildly enlarged. No evidence for pulmonary edema. Left shoulder prosthesis. There are low lung volumes with mild elevation of the right hemidiaphragm. Mitral annulus calcifications are noted IMPRESSION: 1. Mild cardiomegaly. 2. A few bibasilar linear densities. This favors subsegmental atelectasis. Supervising Physician Co-Signing Physician Notes Patient seen and examined, chart reviewed, case discussed with Dr. Watt and I agree with the assessment and plan as above except as otherwise noted Labs and images reviewed Rita is a 72-year-old female with no past medical history of hypertension, hyperlipidemia, DM 2, or tobacco use who does have a history of moderate to severe aortic stenosis and a family history of OR in both brothers at age 40 and and her mother who of a sudden heart attack and old age who presents with chest pain which awoke her from sleep at approximately 3:30 in the morning and was associated with shortness of breath. Since that time her shortness of breath has mildly improved, chest pain which was initially 8/10 improved following aspirin in the ER to around 4/10 but increases again to 7/10 with deep breathing. She does not have worsened pain on palpation of the sternum/ribs. She has had no leg swelling and is not hypoxic. On ER assessment EKG has new Q wave in lead III compared to prior and her high-sensitivity troponin is elevated slightly at 40. She has not had a prior history of OR, by report had a normal dobutamine stress echo in 2019, and has not had any chest pain/shortness of breath in the preceding days/weeks/months leading up to this event. Her normal level of exertion is not limited by her left ear, she reports she works for [employer] for [employer] and did a building [employer] last month and while she needed to rest periodically did not find she was limited by severe dyspnea/exercise intolerance and did not have any angina provoked by this work. General: A&Ox3. NAD. Cooperative. HEENT: Atraumatic, normocephalic. Vision/hearing intact Pulm: CTAB A&P. -wheezes, -rales, -rhonchi. Symmetrical chest rise. No increased work of breathing. No respiratory distress. Cardiac: RRR, crescendodecrescendo systolic murmur present. Radial pulses intact and symmetrical. No JVD is appreciated Abdominal: Nontender, nondistended, soft. BS present. Extremities: No lower extremity pitting edema. No calf asymmetry. 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 EKG with? Lead III Q wave, no acute territorial signs of ischemia including no ST segment changes/acute T wave inversions. High-sensitivity troponin is elevated at 40. Has family history of early OR and 2 brothers at age 40. Patient does not have hypertension, hyperlipidemia, DM 2 or a history of angina. She has moderate aortic stenosis on last echo and has not had exercise limitation due to this. Based on travel to [place], inspiratory pleuritic pain, shortness of breath will screen with D-dimer for PE. No calf asymmetry/swelling or pain. If D- dimer positive follow-up CTA 2-hour troponin ordered, stat echo ordered. Patient has had constant chest pain since around 3:30 in the morning with only minimally elevated troponin, somewhat reassuring but delta is pending. Nitro ordered at time of assessment, and pending clinical reassessment to see if this improves her pain. Target pain-free We will defer heparin at this time. If abnormal echo, or significant rise into her troponin heparinized with bolus DDx does include GERD (patient denies history of this, but notably did have some stomach/chest pain in the past onset by aspirin, and did receive Pepcid in ER which may have helped), MSK pain (although is not significantly worsened on palpation), pericarditis Agree with recommendations and assessment above Resident Activity Tracking Resident Involvement: Resident Care Provided Care Provided: Adult Hospital Medicine
[2023-05-17 12:29] LABS: D Dimer 380 ug/L FEU (0-500)
--- NOTE | 2023-05-17 13:00 | Electrocardiogram Report ---
Test Reason : Blood Pressure : / mmHG Vent. Rate : 092 BPM Atrial Rate : 092 BPM P-R Int : 144 ms QRS Dur : 078 ms QT Int : 344 ms P-R-T Axes : 037 -05 045 degrees QTc Int : 425 ms Normal sinus rhythm Septal infarct , age undetermined Abnormal ECG When compared with ECG of 19-JAN-2019 11:46, Septal infarct is now Present Confirmed by Preet Barnes ([id number]) on 05/17/2023 1:00:15 PM Referred By: REFERRED SELF Confirmed By:Preet Barnes
[2023-05-17] MEDS ORDERED: ALUMINUM/MAGNESIUM SUSP 30 ML UDC PO STA (13:13)
[2023-05-17] MEDS ORDERED: PANTOprazole 40 MG in SYRINGE 0 ML IV ONE (13:30)
--- NOTE | 2023-05-17 13:33 | Cardiology Consultation ---
Date of Consultation May 17, 2023 Assessment & Plan (1) Atypical chest pain: (2) MCDANIEL (dyspnea on exertion): (3) Aortic stenosis, moderate: (4) Elevated troponin: Plan IMPRESSION: 72 year old female with history of moderate aortic stenosis presented to [facility] ED this morning due to 10+ hours of a constant chest discomfort. HS troponins minimally elevated and flat. EKG x2 without acute ischemic changes. Preliminary read on echocardiogram with stable findings of moderate , no acute WMA. Nonischemic nuclear stress noted in 2020 (done for prior concerns regarding MCDANIEL) Bibasilar crackles noted on exam. CXR favored atelectasis without evidence of pulmonary edema. PLAN: Chest pain symptoms atypical in nature- ? symptoms seem somewhat pleuritic vs possible GI component. Will add on a CRP with next blood work as well as a repeat HS troponin at 1500. Give GI cocktail for possible GERD component to symptoms. Low likelihood of ACS given recent findings. Case discussed with Dr. Lloyd. Supervising Physician Co-Signing Physician Notes 72-year-old female presented to the emergency department with chest discomfort. Patient referred to ER after calling in cardiology office for advice. Discomfort ongoing for more than 10 hours. Somewhat improved over the past 2 hours. She was able to fall asleep briefly in the ER. Notes pain improved when she is lying on her right side and takes shallow breaths. Discomfort more pronounced with deep inspiration. No cough or sputum production. Denies PND, however, discomfort began abruptly in the evening, awakening her from sleep. Reports chronic dyspnea on exertion over the past 6 months primarily in walking on incline. No recent weight gain, orthopnea, lower extremity edema, or PND. Denies palpitations, lightheadedness, dizziness, syncope, or near syncope. No fever, chills, or sick contacts. PE: VSS. Gen: NAD, AAO x3. Neck: Possible, mild, HJR. heart: Regular rhythm. Normal S1 and S2. 3/6 medium pitched, mid to late peaking systolic ejection murmur heard best at the right second intercostal space. Lungs: Crackles at the bases bilateral, right greater than left. No rhonchi or wheeze. Abdomen: Soft, nontender, nondistended. Extremities: No edema. A/P: Agree with above AP history, physical exam, assessment and plan. Patient presenting with pleuritic, atypical chest discomfort. Echocardiogram with preserved LV systolic function, normal wall motion, moderate aortic stenosis and evidence of mild pulmonary hypertension. With mildly elevated pulmonary pressure, and possible PND, recommend dose of IV furosemide now with reassessment of symptoms. Viral URI/pneumonia within the differential. Agree with Bio[employer] and CRP assessment. Trend cardiac enzymes x3 sets. Further is chemic evaluation pending clinical course. Thank you for allow me to participate in the care of your patient. History of Present Illness Reason for Consultation: Chest pain Requesting Physician: Arnol del valle History of Present Illness 72-year-old female with history of moderate aortic stenosis presented to [facility] emergency department after an episode of chest discomfort that woke her up in the middle the night (~3:30am). Symptoms described as a constant sharp substernal chest pain and she also felt into her back. Symptoms worsen with inspiration or when changing positions from laying to sitting. She got up from bed and went to read on the couch- symptoms did not let up by the time her woke this morning and she decided to come into the ED for further evaluation. Upon entrance into the room patient resting in bed. Chest discomfort symptoms remain unchanged. She denies any acute shortness of breath with this episode, but has noted increased MCDANIEL over the last year. Continues to do water aerobics at her local gym without exertional symptoms. No palpitations, lightheadedness of dizziness. Denies any recent msk strain. Labs were notable for an elevated troponin 40.5>>37.8. D-dimer was normal She was given 324 mg of aspirin, Zofran, and Pepcid. EKG without ST segment changes. Preliminary echo without acute WMA and stable moderate . BP initially mildly elevated, but now well controlled. Past medical history: Nonrheumatic aortic stenosis mild aortic regurgitation Hypothyroidism, on replacement Allergies Allergy/AdvReac Type Severity Reaction Status Date / Time acetaminophen [From Vicodin] Allergy Severe Rash Verified 02/13/23 08:56 aspirin Allergy Severe Chest Pain Verified 02/13/23 08:56 hydrocodone [From Vicodin] Allergy Severe Rash Verified 02/13/23 08:56 Home Medications Medication Instructions Recorded Confirmed Type acetaminophen 650 mg 650 mg PO QDL 08/14/19 05/17/23 History tablet,extended release (Tylenol 8 Hour) cyanocobalamin (vitamin B-12) 1,000 mcg PO QAM 05/09/21 05/17/23 History 1,000 mcg tablet (Vitamin B-12) cholecalciferol (vitamin D3) 50 50 mcg PO DAILY #90 caps 01/25/22 05/17/23 Rx mcg (2,000 unit) capsule clonazepam 0.5 mg tablet 0.5 mg PO .COMPLEX #30 tabs 07/03/22 05/17/23 Rx levothyroxine 100 mcg tablet 100 mcg PO 6XWK #90 tabs 03/21/23 05/17/23 Rx tramadol 50 mg tablet 25 mg PO BID pain #30 tabs 05/03/23 05/17/23 Rx Patient History Medical History (Updated 05/17/23 @ 13:53 by NOE العلي) Cancer 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 Chronic constipation Colon polyps Demyelinating disorder Encounter for pre-operative examination Endometrioid adenocarcinoma of uterus Hypothyroidism Neck stiffness Obesity Osteoarthritis Restless leg syndrome Right-sided low back pain with right-sided sciatica Surgical History (Updated 02/13/23 @ 09:30 by Puja Mcrae MD) H/O foot surgery RT FOOT SURGERY WITH HARDWARE History of bilateral tubal ligation History of colonoscopy History of dilatation and curettage History of hysterectomy for cancer (05/26/13) History of left shoulder replacement History of tonsillectomy History of tooth extraction History of total abdominal hysterectomy and bilateral salpingo-oophorectomy History of total hip arthroplasty RT History of total knee replacement RT/LEFT Hx of left cataract extraction Status post total replacement of hip (05/26/13) Family History Brother Family history of diabetes mellitus Myocardial infarction Hx of CABG Coronary heart disease Mother Family history of diabetes mellitus Myocardial infarction Hypertension Father Alzheimer disease Social History Smoking Status: Never smoker Second Hand Exposure: No; Do You Dip or Chew Tobacco: No; Hx Alcohol Use: Yes Alcohol type: hard liquor Hx Substance Use: No Preferred Language: Taiwanese Communication Ability: Effective Visual Impairment: No Limitations Hearing Ability: Use of Hearing Aid Hole Puncher Strap Required: No Beliefs That Will Affect Care: None marital status: Current Living Situation: Spouse current occupational status: retired Other Information That Helps Us Care for You: No Feels Safe at Home: Yes Safety Concerns: Feels Safe At This Time Physical Activity Frequency: 3-4 Times per Week Seatbelt Use: always Assistive Devices: Hearing Aid - Bilateral Review of Systems Review of Systems: All systems reviewed & are unremarkable except as noted in HPI & below Physical Exam Constitutional: WD/WN, vitals as above no acute distress Respiratory: normal respiratory effort; no labored breathing Auscultation: + crackles (bibasilar ); no rhonchi and no wheezes Cardiovascular: RRR, no murmur, no edema Heart Sounds: normal S1, normal S2 and + murmur (+2/6 systolic murmur, best at RSB) Vessels: no JVD Extremities: no edema Gastrointestinal (Abdomen): normal bowel sounds, soft, nontender, no hepatosplenomegaly Skin: no rashes, warm and dry Psychiatric: A+Ox3, euthymic affect Results & Data Vital Signs (Past 12 Hours) Vital Signs Temp Pulse Pulse Resp BP BP Pulse Ox 05/17/23 12:30 78 15 112/76 99 05/17/23 11:29 81 16 126/69 97 05/17/23 11:29 81 16 97 05/17/23 11:29 97 05/17/23 09:31 79 16 141/80 H 95 05/17/23 09:22 83 05/17/23 09:09 36.9 C 96 H 18 167/82 H 94 O2 Del Method 05/17/23 12:30 05/17/23 11:29 05/17/23 11:29 Room Air 05/17/23 11:29 Room Air 05/17/23 09:31 05/17/23 09:22 05/17/23 09:09 Room Air Diagnostic Findings Echocardiogram report reviewed dated January 2023: The qualitative LV ejection fraction is 55-59% (normal). The LV wall thickness is mildly increased (concentric). The left atrium is moderately enlarged (42-48 ml/m^2). The left ventricular diastolic function is moderately abnormal (grade II). The aortic valve is moderately calcified. Moderate aortic valve stenosis is present. Mild aortic valve regurgitation is present. Mild mitral regurgitation is present. Mild tricuspid regurgitation is present. There is no evidence of pulmonary hypertension. Compared to prior study of 06/06/2022, there is no significant change. Summary of nuclear stress test 07/20/2022: Myocardial perfusion imaging is normal. Overall left ventricular systolic function was normal without regional wall motion abnormalities. The left ventricular ejection fraction was >70%. There are no prior studies available for comparison. Summary of transthoracic echocardiogram performed 06/06/2022: The left ventricular cavity size is normal. The LV wall thickness is mildly increased (concentric). The left ventricular wall motion is normal. The qualitative LV ejection fraction is 60-64% (normal). The aortic valve is moderately calcified. Moderate aortic valve stenosis is present. There is moderate mitral annular calcification. The mitral valve leaflets thickness is mildly increased. Mild mitral regurgitation is present. Mild tricuspid regurgitation is present.
[2023-05-17] MEDS ORDERED: GI COCKTAIL ED USE PO ONE (14:15)
[2023-05-17] MEDS ORDERED: FUROSEMIDE INJ 20 MG/2 ML VIAL IV ONE (15:10)
[2023-05-17] MEDS ORDERED: clonazePAM 0.5 MG TAB PO PRN (15:16)
[2023-05-17] MEDS ORDERED: POLYETHYLENE (MIRALAX) 17 GM PACK PO PRN (15:16)
[2023-05-17] MEDS ORDERED: ONDANSETRON INJ 2 MG/ML 2 ML VIAL IV PRN (15:16)
[2023-05-17] MEDS ORDERED: ACETAMINOPHEN 325 MG TAB PO PRN (15:16)
[2023-05-17 15:52] LABS: C Reactive Protein 1.92 mg/dl (0-0.5)
[2023-05-17 15:57] LABS: Troponin I High Sensitivity 36.3 pg/ml (0-14)
[2023-05-17 17:59] LABS: Appearance Urine Clear (Clear); Bilirubin Urine Negative (Negative); Blood Urine Negative (Negative); Color Urine Yellow; Glucose Urine UA Negative (Negative); Ketones Urine Negative (Negative); Leukocyte Esterase Urine Negative (Negative); Nitrite Urine Negative (Negative); Protein Urine Negative (Negative); Specific Gravity Urine 1.008 (1.000-1.030); Urobilinogen Urine Negative (Negative)
[2023-05-17 18:35] LABS: Adenovirus PCR Not Detected (NotDetected); Bordetella parapertussis PCR Not Detected (NotDetected); Bordetella pertussis PCR Not Detected (NotDetected); Chlamydia pneumoniae PCR Not Detected (NotDetected); Coronavirus 229E PCR Not Detected (NotDetected); Coronavirus CoV-2 (COVID19)PCR Not Detected (NotDetected); Coronavirus HKU1 PCR Not Detected (NotDetected); Coronavirus NL63 PCR Not Detected (NotDetected); Coronavirus OC43PCR Not Detected (NotDetected); Human Metapneumovirus PCR Not Detected (NotDetected); Influenza A PCR Not Detected (NotDetected); Influenza B PCR Not Detected (NotDetected); Mycoplasma pneumoniae PCR Not Detected (NotDetected); Parainfluenza Virus 1 PCR Not Detected (NotDetected); Parainfluenza Virus 2 PCR Not Detected (NotDetected); Parainfluenza Virus 3 PCR Not Detected (NotDetected); Parainfluenza Virus 4 PCR Not Detected (NotDetected); Respiratory Syncytial VirusPCR Not Detected (NotDetected); Rhinovirus/Enterovirus PCR Not Detected (NotDetected)
[2023-05-18] MEDS: LEVOTHYROXINE SODIUM 100 MCG TABLET PO SCH (06:06)
[2023-05-18 07:18] LABS: Hemoglobin 13.9 g/dl (12.0-16.0); Mean Corpuscular Hemoglobin 32.4 pg (25.0-34.0); Mean Corpuscular Hgb Conc 34.8 g/dL (32.0-36.0); Mean Corpuscular Volume 93.2 fL (80.0-100.0); Mean Platelet Volume 10.6 fL (9.4-12.4); Platelet Count 208 K/uL (130-400); RDW Coefficient of Variation 12.2 % (11.5-14.5); RDW Standard Deviation 41.5 fL (36.4-46.3); Red Blood Count 4.29 M/uL (4.20-5.40); White Blood Count 9.19 K/ul (4.8-10.8)
[2023-05-18 07:40] LABS: Albumin Globulin Ratio 1.4 (0.9-2); Albumin Level 4.2 gm/dl (3.4-5.0); BUN Creatinine Ratio 23.9 (10-20); Bilirubin,Total 1.3 mg/dl (0.2-1.0); Calcium 9.4 mg/dl (8.6-10.3); Creatinine Clr Calc Pharmacy 74.7 ml/min; Est GFR (African American) 100.4 ml/min; Est GFR (Non-African American) 86.6 ml/min; Potassium 4.3 mmol/L (3.5-5.1); Total Protein 7.2 gm/dl (6.0-8.3)
--- NOTE | 2023-05-18 08:19 | Hospitalist Progress Note ---
Date of Service May 18, 2023 Assessment & Plan (1) Chest pain: Plan: 72 y/o with PMHx of moderate aortic stenosis, hypothyroidism, and arthritis who presented with chest pain admitted for ACS r/o. HsTrop 40.5-37-36. Minimal risk factors - , has family history. D dimer is negative, respiratory biofire is negative ECHO preserved EF, Moderate Consult Dr. Lloyd ([employer]) recommends left heart cath on [id number] (2) Restless legs syndrome: Plan: patient on clonazepam 0.5 mg PRN at home for RLS. Can continue (3) Hypothyroidism: Plan: Stable on levothyroxine 100 mcg. Continue home med Admission and Anticipated Discharge Date Admission Date: May 17, 2023 Subjective patient with resolution of symptoms no trend of troponin no dyspnea cardiology recommends left heart catheterization with angiography on 821 Physical Exam Physical Exam: awake alert and appropriate no distress cardiac exam is regular without murmurs clicks rubs or gallops there is no reproducible chest pain the chest wall exam lung exams are basilar crackles Lasix ordered by cardiology Results & Data Results & Data Vital Signs (Past 12 Hours) Vital Signs Temp Pulse Pulse Resp BP Pulse Ox O2 Del Method 05/18/23 07:11 98.8 F 82 18 122/62 94 Room Air 05/18/23 03:18 98.8 F 82 18 115/76 94 Room Air 05/17/23 23:08 98.2 F 80 18 106/76 97 Room Air 05/17/23 22:52 80 Laboratory Results reviewed CBC reviewed chemistry reviewed troponin trend PG Care Time/CCT Total # of Minutes Spent Total Time Spent with Patient: Total time spent is greater than 50% in coordination of care (as documented) at patient's floor/unit and/or counseling patient: Coding Level of Care Code 89245 SUB INP/OBS CARE 2/35MIN Diagnoses Chest pain R07.9 Restless legs syndrome G25.81 Hypothyroidism E03.9
[2023-05-18] MEDS ORDERED: FUROSEMIDE INJ 20 MG/2 ML VIAL IV ONE (11:10)
--- NOTE | 2023-05-18 11:10 | Cardiology Progress Note ---
Date of Service May 18, 2023 Assessment & Plan (1) Atypical chest pain: (2) MCDANIEL (dyspnea on exertion): (3) Aortic stenosis, moderate: (4) Elevated troponin: Plan Patient presenting with pleuritic, atypical chest discomfort. Clinically responded to dose of intravenous furosemide with less prominent crackles on exam today suggesting component of heart failure with preserved ejection fraction. Recommendation all 20 mg IV furosemide today. Recommend further evaluation with left heart catheterization and coronary angiography. Risk, benefits, alternatives to procedure discussed. Patient agreeable to proceed. We will plan procedure in a.m. 05/20/2023. Admission and Anticipated Discharge Date Admission Date: May 17, 2023 Subjective Patient seen examined the bedside. Feeling much better this morning. Chest discomfort has resolved. Diuresed approximately 800 mL with dose of furosemide yesterday. Telemetry reveals sinus rhythm in the 80s to 90s. No orthopnea or PND. at bedside. Offers no additional concerns/complaints. Review of Systems Review of Systems: All systems reviewed & are unremarkable except as noted in Subjective Physical Exam Constitutional: well nourished; no acute distress Respiratory: Auscultation: + crackles (Bases bilateral) Cardiovascular: Rate/Rhythm: regular rate and regular rhythm Heart Sounds: normal S1, normal S2 and + murmur (3/6 mid to late peaking systolic ejection) Vessels: radial pulses present; no JVD Gastrointestinal (Abdomen): Inspection/Auscultation: abdomen not distended Neurologic: CN's II-XI intact bilaterally and moves all extremities; no focal motor deficits Psychiatric: A+Ox3, euthymic affect Results & Data Vital Signs (Past 12 Hours) Vital Signs Temp Pulse Resp BP Pulse Ox O2 Del Method 05/18/23 10:55 36.7 C 81 17 119/64 93 Room Air 05/18/23 07:11 37.1 C 82 18 122/62 94 Room Air 05/18/23 03:18 37.1 C 82 18 115/76 94 Room Air 05/17/23 23:08 36.8 C 80 18 106/76 97 Room Air Laboratory Results Cardiac Enzymes 05/17/23 05/17/23 05/18/23 Range/Units 12:07 15:24 06:29 AST 17 (13-39) U/L Troponin I High Sens 37.8 H 36.3 H (0-14) pg/ml CBC 05/18/23 Range/Units 06:29 WBC 9.19 (4.8-10.8) K/ul RBC 4.29 (4.20-5.40) M/uL Hgb 13.9 (12.0-16.0) g/dl Hct 40.0 (37.0-47.0) % Plt Count 208 (130-400) K/uL Comprehensive Metabolic Panel 05/18/23 Range/Units 06:29 Sodium 138 (136-145) mmol/L Potassium 4.3 (3.5-5.1) mmol/L Chloride 101 (98-107) mmol/L Carbon Dioxide 30 (21-32) mmol/L BUN 16 (6-23) mg/dl Creatinine 0.67 (0.6-1.2) mg/dl Glucose 97 (70-99(Fasting)) mg/dl Calcium 9.4 (8.6-10.3) mg/dl AST 17 (13-39) U/L ALT 10 (7-52) U/L Alkaline Phosphatase 71 (34-104) U/L Total Protein 7.2 (6.0-8.3) gm/dl Albumin 4.2 (3.4-5.0) gm/dl Intake and Output 05/17/23 05/18/23 05/18/23 22:59 06:59 14:59 Intake Total 260 / 260 Output Total 600 / 1100 500 / 1100 Balance -340 / -840 -500 / -840 Intake: Oral 260 / 260 Output: Urine 600 / 1100 500 / 1100 Other: Weight 83.5 kg 82 kg Weight Measurement Method Built in [facility] Built in [facility]
[2023-05-18] MEDS: METOPROLOL TARTRATE 25 MG TAB PO SCH ×2 (12:26→21:12)
--- NOTE | 2023-05-19 07:10 | Hospitalist Progress Note ---
Date of Service May 19, 2023 Assessment & Plan (1) Chest pain: Plan: 72 y/o with PMHx of moderate aortic stenosis, hypothyroidism, and arthritis who presented with chest pain admitted for ACS r/o. possible unstable angina HsTrop 40.5-37-36. Minimal risk factors - , has family history. D dimer is negative, respiratory biofire is negative ECHO preserved EF, Moderate Consult Dr. Lloyd ([facility]) recommends left heart cath on 05/20, patient will be placed on Plavix (2) Restless legs syndrome: Plan: patient on clonazepam 0.5 mg PRN at home for RLS. Can continue (3) Hypothyroidism: Plan: Stable on levothyroxine 100 mcg. Continue home med Admission and Anticipated Discharge Date Admission Date: May 17, 2023 Subjective no complaints overnight cardiology did visit on 05/19 anticipate cardiac catheterization 05/20 Physical Exam Physical Exam: awake alert and appropriate no distress cardiac exam is regular without murmurs clicks rubs or gallops there is no reproducible chest pain the chest wall exam lung exams are clear Results & Data Results & Data Vital Signs (Past 12 Hours) Vital Signs Temp Pulse Pulse Resp BP Pulse Ox O2 Del Method 05/19/23 04:02 98.1 F 73 19 117/67 92 Room Air 05/18/23 23:00 85 05/18/23 20:00 Room Air 05/18/23 23:44 98.1 F 67 17 110/56 L 94 Room Air 05/18/23 19:48 98.2 F 77 17 129/72 91 Room Air PG Care Time/CCT Total # of Minutes Spent Total Time Spent with Patient: Total time spent is greater than 50% in coordination of care (as documented) at patient's floor/unit and/or counseling patient: Coding Level of Care Code 04342 SUB INP/OBS CARE 2/35MIN Diagnoses Chest pain R07.9 Restless legs syndrome G25.81 Hypothyroidism E03.9
[2023-05-19 07:17] LABS: Hematocrit (blood only) 42.2 % (37.0-47.0); Hemoglobin 14.4 g/dl (12.0-16.0); Mean Corpuscular Hemoglobin 31.7 pg (25.0-34.0); Mean Corpuscular Hgb Conc 34.1 g/dL (32.0-36.0); Mean Platelet Volume 10.8 fL (9.4-12.4); Platelet Count 224 K/uL (130-400); RDW Coefficient of Variation 11.9 % (11.5-14.5); Red Blood Count 4.54 M/uL (4.20-5.40); White Blood Count 8.36 K/ul (4.8-10.8)
[2023-05-19 07:40] LABS: Albumin Globulin Ratio 1.2 (0.9-2); Albumin Level 4.3 gm/dl (3.4-5.0); Bilirubin,Total 1.2 mg/dl (0.2-1.0); Calcium 9.7 mg/dl (8.6-10.3); Creatinine Clr Calc Pharmacy 79.5 ml/min; Est GFR (African American) 102.4 ml/min; Est GFR (Non-African American) 88.4 ml/min; Globulin 3.5 gm/dl (2.5-4.0); Potassium 4.1 mmol/L (3.5-5.1); Total Protein 7.8 gm/dl (6.0-8.3)
[2023-05-19] MEDS: METOPROLOL TARTRATE 25 MG TAB PO SCH ×2 (07:50→20:53)
--- NOTE | 2023-05-19 08:15 | Cardiology Progress Note ---
Date of Service May 19, 2023 Assessment & Plan (1) Atypical chest pain: (2) MCDANIEL (dyspnea on exertion): (3) Aortic stenosis, moderate: (4) Elevated troponin: (5) Paroxysmal atrial tachycardia: Plan Patient presenting with pleuritic, atypical chest discomfort. Clinically resp onded intravenous furosemide suggesting component of heart failure with preserved ejection fraction. Appears compensated today. We will hold further diuretic therapy at this time. Continue metoprolol 25 mg twice daily. Documented aspirin allergy. Will initiate clopidogrel in anticipation of cardiac catheterization. Risk, benefits, alternatives to procedure discussed. Patient agreeable to proceed. N.p.o. except medications after midnight for procedure in a.m. Admission and Anticipated Discharge Date Admission Date: May 17, 2023 Subjective Patient seen examined the bedside. Feeling better today. Fluid balance -1.3 L. Serum creatinine remains stable. Denies orthopnea or PND. Mild episode of chest discomfort noted yesterday. Brief salvos of paroxysmal atrial tachycardia on telemetry. Metoprolol initiated. Review of Systems Review of Systems: All systems reviewed & are unremarkable except as noted in Subjective Physical Exam Constitutional: well nourished; no acute distress Respiratory: Auscultation: + crackles (Bases bilateral) Cardiovascular: Rate/Rhythm: regular rate and regular rhythm Heart Sounds: normal S1, normal S2 and + murmur (3/6 mid to late peaking systolic ejection) Vessels: radial pulses present; no JVD Gastrointestinal (Abdomen): Inspection/Auscultation: abdomen not distended Neurologic: CN's II-XI intact bilaterally and moves all extremities; no focal motor deficits Psychiatric: A+Ox3, euthymic affect Results & Data Vital Signs (Past 12 Hours) Vital Signs Temp Pulse Pulse Resp BP Pulse Ox O2 Del Method 05/19/23 07:45 36.3 C L 81 19 147/73 H 92 Room Air 05/19/23 04:02 36.7 C 73 19 117/67 92 Room Air 05/18/23 23:00 85 05/18/23 23:44 36.7 C 67 17 110/56 L 94 Room Air
[2023-05-19] MEDS: CLOPIDOGREL BISULFATE 75 MG TAB PO SCH (09:39)
[2023-05-19] MEDS: traMADol HCL 50 MG TABLET PO SCH (20:54)
[2023-05-20] MEDS: LEVOTHYROXINE SODIUM 100 MCG TABLET PO SCH (06:06)
[2023-05-20 06:25] LABS: Hematocrit (blood only) 40.7 % (37.0-47.0); Hemoglobin 13.9 g/dl (12.0-16.0); Mean Corpuscular Hgb Conc 34.2 g/dL (32.0-36.0); Mean Corpuscular Volume 93.8 fL (80.0-100.0); Mean Platelet Volume 10.3 fL (9.4-12.4); Platelet Count 211 K/uL (130-400); RDW Coefficient of Variation 11.8 % (11.5-14.5); RDW Standard Deviation 40.7 fL (36.4-46.3); Red Blood Count 4.34 M/uL (4.20-5.40); White Blood Count 6.65 K/ul (4.8-10.8)
[2023-05-20 06:51] LABS: Albumin Globulin Ratio 1.3 (0.9-2); Bilirubin,Total 0.8 mg/dl (0.2-1.0); Calcium 9.5 mg/dl (8.6-10.3); Est GFR (African American) 105.2 ml/min; Est GFR (Non-African American) 90.8 ml/min; Globulin 3.1 gm/dl (2.5-4.0); Potassium 4.3 mmol/L (3.5-5.1); Total Protein 7.1 gm/dl (6.0-8.3)
[2023-05-20] MEDS ORDERED: MIDAZOLAM HCL 1 MG/ML 2ML VIAL ONE (07:24)
[2023-05-20] MEDS ORDERED: niCARdipine HCL INJ 2.5 MG/ML 10 ML AMP ONE (07:24)
[2023-05-20] MEDS ORDERED: HEPARIN (PORCINE) 1000 UNIT/ML 10 ML (CATH LAB USE ONLY) ONE (07:24)
[2023-05-20] MEDS ORDERED: fentaNYL citrate PF 100 MCG/2 ML VIAL ONE (07:26)
[2023-05-20] MEDS ORDERED: NITROGLYCERIN/D5W 100MCG/ML 20ML SYR ONE (07:26)
[2023-05-20] MEDS ORDERED: ASPIRIN 81 MG CHEW ONE (07:47)
--- NOTE | 2023-05-20 08:11 | Pre Anesthesia Assessment ---
Date of Service May 20, 2023 Pre Sedation Assessment Vital Signs Temp Pulse Pulse Resp BP BP Pulse Ox 05/20/23 09:17 36.4 C L 60 18 122/61 98 05/20/23 09:00 67 20 116/61 96 05/20/23 08:45 64 20 112/63 94 05/20/23 07:14 69 21 160/82 H 96 05/20/23 03:00 36.5 C 60 17 120/75 96 05/19/23 23:00 36.8 C 64 18 122/79 98 05/19/23 22:39 76 05/19/23 20:00 05/19/23 19:49 37.2 C 88 18 134/80 96 05/19/23 15:29 66 05/19/23 15:06 36.8 C 74 17 91/58 L 97 05/19/23 11:20 36.6 C 75 17 115/73 93 O2 Del Method 05/20/23 09:17 Room Air 05/20/23 09:00 Room Air 05/20/23 08:45 Room Air 05/20/23 07:14 Room Air 05/20/23 03:00 Room Air 05/19/23 23:00 Room Air 05/19/23 22:39 05/19/23 20:00 Room Air 05/19/23 19:49 Room Air 05/19/23 15:29 05/19/23 15:06 Room Air 05/19/23 11:20 Room Air Cardiovascular + regular rate and + regular rhythm + S1 normal, + S2 normal and + murmur + femoral pulses present and + radial pulses present; no JVD no edema Respiratory + respiratory effort normal; no retractions + clear to auscultation bilaterally; no crackles, no rales, no rhonchi and no wheezes Pre-Sedation Airway Assessment Smoking Status: Never smoker Hx Sleep Apnea: No Short, Thick Neck: No Thyromental Distance: > or= 3.5 Finger Breadths Oral Cavity: + WNL Mallampati Class: III ASA: ASA3 NPO Status Date of Last Intake of Fluids: 05/20/23 Time of Last Intake of Fluids: 06:30 Date of Last Intake of Solid Food: 05/19/23 Time of Last Intake of Solid Foods: 21:00 Procedure Planning Contraindications for Sedation: none Current Medications Reviewed: Yes Notes The planned sedation has been discussed with the patient. Informed Consent was obtained. I have identified the patient, determined the appropriateness of sedation and have assessed the patient immediately prior to the procedure. All medicine(s) and interventions are by my order.
--- NOTE | 2023-05-20 08:42 | Electrocardiogram Report ---
Test Reason : Blood Pressure : / mmHG Vent. Rate : 077 BPM Atrial Rate : 077 BPM P-R Int : 160 ms QRS Dur : 074 ms QT Int : 382 ms P-R-T Axes : 037 006 037 degrees QTc Int : 432 ms Poor data quality, interpretation may be adversely affected Normal sinus rhythm Low voltage QRS Borderline ECG When compared with ECG of 17-MAY-2023 09:17, No significant change was found Confirmed by Santos Alexandra ([id number]) on 05/20/2023 8:42:17 AM Referred By: REFERRED SELF Confirmed By:Santos Alexandra
--- NOTE | 2023-05-20 09:09 | Electrocardiogram Report ---
Test Reason : Blood Pressure : / mmHG Vent. Rate : 077 BPM Atrial Rate : 077 BPM P-R Int : 156 ms QRS Dur : 076 ms QT Int : 372 ms P-R-T Axes : 062 019 044 degrees QTc Int : 420 ms Normal sinus rhythm Normal ECG When compared with ECG of 17-MAY-2023 13:41, (unconfirmed) No significant change was found Confirmed by Santos Alexandra ([id number]) on 05/20/2023 9:09:28 AM Referred By: REFERRED SELF Confirmed By:Santos Alexandra
--- NOTE | 2023-05-20 09:10 | Post Anesthesia Assessment ---
Date of Service May 20, 2023 Post Sedation Assessment Vital Signs Temp Pulse Pulse Resp BP BP Pulse Ox 05/20/23 11:16 67 05/20/23 10:57 68 17 122/70 94 05/20/23 10:30 68 18 120/69 96 05/20/23 10:04 70 19 120/69 95 05/20/23 09:50 66 20 113/75 96 05/20/23 09:36 76 18 109/63 109/63 98 05/20/23 09:17 36.4 C L 60 18 122/61 98 05/20/23 09:00 67 20 116/61 96 05/20/23 08:45 64 20 112/63 94 05/20/23 07:14 69 21 160/82 H 96 05/20/23 03:00 36.5 C 60 17 120/75 96 05/19/23 23:00 36.8 C 64 18 122/79 98 05/19/23 22:39 76 05/19/23 20:00 05/19/23 19:49 37.2 C 88 18 134/80 96 05/19/23 15:29 66 05/19/23 15:06 36.8 C 74 17 91/58 L 97 O2 Del Method 05/20/23 11:16 05/20/23 10:57 Room Air 05/20/23 10:30 Room Air 05/20/23 10:04 Room Air 05/20/23 09:50 Room Air 05/20/23 09:36 Room Air 05/20/23 09:17 Room Air 05/20/23 09:00 Room Air 05/20/23 08:45 Room Air 05/20/23 07:14 Room Air 05/20/23 03:00 Room Air 05/19/23 23:00 Room Air 05/19/23 22:39 05/19/23 20:00 Room Air 05/19/23 19:49 Room Air 05/19/23 15:29 05/19/23 15:06 Room Air Recovery Score Activity: Moves 4 extremities Respiration: Deep Breath/Cough Circulation: +/-20% PreAnes Value Consciousness: Fully Awake Oxygen Saturation: > 92% On Room Air Post Anesthesia Score: 10 Discharge Sedation Level of Care: Phase I Post Sedation Plan On clinical assessment, the patient appears to have tolerated the sedation without complications. Patient is recovering as anticipated. Patient will continue to be monitored by nursing and may be discharged when sedation discharge criteria are met per below protocol. Upon Completions of procedure up to 15 minutes continue every 5 minute vital signs and the P.A.R. score; then discharge to a Phase I or Fast Track to Phase II per the following guidelines: * Discharge Patient to appropriate Phase II area if PAR is 8 or greater or return to pre- procedure baseline. The post - procedure orders will be as directed. * If PAR score is less than 8 or not return to pre-procedure baseline then patient will follow Phase I monitoring till PAR is reached for Phase II. The Phase I may be done in procedure room or may call to secure a Phase I area. * If naloxone or flumazenil are used for reversal, hold in Phase I for continued monitoring from when last reversal dose was given for a minimum of 60 minutes or longer pending the nurse and/or physician discretion of patient condition before discharge to Phase II. Please call the Sedation Physician to re-evaluate and complete post-note for discharge to Phase II area. Do NOT discharge from procedure sedation or Phase 1 until post- sedation evaluation note is complete by procedure /sedation MD Sedation Discharge Instructions to be given to the patient at discharge to home.
--- NOTE | 2023-05-20 09:20 | Cardiac Catheterization ---
Cardiac Cath Procedure Full Procedure Date May 20, 2023 Pre-Procedure Diagnosis Pre-Procedure Diagnosis: Valvular Disease (Moderate aortic stenosis) and Cardiothoracic Symptom (chest pain, mildly elevated troponin) AUC Score AUC Score: 7 Post-Procedure Diagnosis Post-Procedure Diagnosis: Mild CAD, Normal Intracardiac Pressures and Cardiothoracic Finding (Moderate aortic valve stenosis with peak to gradient 25mmHg) Procedure(s) Performed Procedure(s) Performed: Coronary Angiography and Left Heart Cath Finance Officer Miguelangel Lloyd DO Undercutter Operator(s) Deibler RTR Estimated Blood Loss Estimated Blood Loss: 5cc Medication(s) Medication(s): Fentanyl, Heparin, Lidocaine 1%, Nicardipine, Nitroglycerin and Versed Summary of Findings Right dominant coronary anatomy. Nonobstructive coronary disease with 40% mid OM1. Moderate aortic valve stenosis. Peak to peak gradient 25mmHg. Mean gradient 25mmHg. Hemodynamics Rest Ao:: 108/61/105 Final Ao: 115/55/78 LV: 140/-1/7 Recommendations Recommendations: Medical Therapy and/or Counseling Radiation Exposure (mGy) 511 Contrast (mls) 65 Fluids (cc crystalloids) Fluids (cc crystalloids): 100 nss Drains Drains: N/A Anesthesia Moderate sedation. Start 0819. End 0838. Sedation monitor Procedural Complication(s) None I attest to the content of the Intraoperative Record and any orders documented therein. Any exceptions are noted below. ACC Data: Audio Operator Cardiac Status Clinical evaluation leading to the procedure 72-year-old female admitted through the emergency department due to chest discomfort. Mildly elevated troponins noted. Echocardiogram confirming moderate aortic stenosis. Due to ongoing dyspnea with exertion, decline in functional capacity, chest discomfort with mildly elevated troponin, cardiac catheterization recommended. CAD Presenation: Unstable angina Anginal Classification: CCS III Heart Failure: No Cardiogenic Shock within 24 Hours: No Cardiac Arrest within 24 Hours: No Imaging Studies Past 6 Months: Yes Stress Studies Past 6 Months: No Coronary Anatomy Dominant: Right Left Main (% Stenosis): Normal LAD (% Stenosis): Proximal (10%) D1 (% Stenosis): Normal D2 (% Stenosis): Normal Circumflex (% Stenosis): Normal OM1 (% Stenosis): Mid (40%, large vessel) RCA (% Stenosis): Proximal (10%) R PDA (% Stenosis): Normal R PL1 (% Stenosis): Normal Diagnostic Physicians Name: Miguelangel Lloyd, Closure Device Percutaneous Entry Location: Radial Closure Device: Radial Band Recommendations: Medical Therapy and/or Counseling Intraprocedure Events Significant Disection: No Perforation: No
[2023-05-20] MEDS: traMADol HCL 50 MG TABLET PO SCH (09:35)
[2023-05-20] MEDS: CLOPIDOGREL BISULFATE 75 MG TAB PO SCH (09:35)
[2023-05-20] MEDS: METOPROLOL TARTRATE 25 MG TAB PO SCH (09:35)
--- NOTE | 2023-05-20 12:07 | Cardiology Progress Note ---
Date of Service May 20, 2023 Assessment & Plan (1) Atypical chest pain: (2) MCDANIEL (dyspnea on exertion): (3) Aortic stenosis, moderate: (4) Elevated troponin: (5) Paroxysmal atrial tachycardia: Plan Cardiac catheterization demonstrating nonobstructive coronary disease and mode rate aortic valve stenosis. Postprocedural activity restrictions listed below. Although aspirin allergy listed, patient reports GI upset rather than true allergy. Recommend discontinuation of clopidogrel. Continue low-dose aspirin, 81 mg daily and beta-mega therapy. Patient may be discharged from a cardiovascular perspective. Outpatient follow-up with Dr. Cormier in 2 to 4 weeks. ACTIVITY RECOMMENDATIONS: Excess manipulation of the wrist should be avoided for the next 24-48 hours. * No lifting over 2 pounds (approximately a 1/2 gallon of milk) with the utilize d arm for 24 hours. * No strenuous activity such as bowling or tennis for 3 days. * Keep the site of the procedure covered with a bandage for 24 hours. *You may shower the day after the procedure. Do not take a tub bath or submerge the puncture site in water for the next 3 days. *Do not operate any motorized equipment for 3 days. SPECIAL CARE INSTRUCTIONS: The site may be slightly bruised and sore following your procedure. Should any of the following occur, contact the Dr. who performed your procedure. 1. Redness/inflammation, swelling, chills, or fever, or colored drainage at procedure site within 3-7 days after your procedure. 2. Coldness, discoloration, ongoing numbness, severe pain, or swelling. Expect mild tingling of hand and tenderness at the puncture site for up to three days. If this persists beyond three days, or other symptoms develop, notify the Dr. who performed your procedure. BLEEDING: If the procedure site on your wrist begins to bleed, do not panic 1. Place 1 or 2 fingers firmly just slightly above the insertion site to stop the bleeding. You may be able to feel your pulse as you hold pressure. 2. Lift your finger after 5 minutes to see if the bleeding has stopped. 3. Once the bleeding has stopped, gently wipe the wrist area clean with a bandage. * If the bleeding from your wrist does not stop after 10 minutes, or if there is a large amount of bleeding or spurting, call 911 (do not drive yourself to the hospital). SKIN IRRITATION: * You may experience some redness and/or swelling in the area where radiation was administered. If any skin irritation occurs, please contact your family physician. FOLLOW UP VISIT: Keep any scheduled doctor appointments. Admission and Anticipated Discharge Date Admission Date: May 17, 2023 Subjective Patient seen and examined at the bedside. Cardiac catheterization performed earlier today. No evidence of obstructive CAD no significant stenosis being a 40% obtuse marginal branch vessel. Moderate aortic valve stenosis permanent invasive assessment. Review of Systems Review of Systems: All systems reviewed & are unremarkable except as noted in Subjective Physical Exam Constitutional: well nourished; no acute distress ENMT: Mallampati Class: III Respiratory: normal respiratory effort; no retractions Auscultation: lungs clear to auscultation bilaterally; no crackles, no rales, no rhonchi and no wheezes Cardiovascular: Rate/Rhythm: regular rate and regular rhythm Heart Sounds: normal S1, normal S2 and + murmur Vessels: femoral pulses present and radial pulses present; no JVD Extremities: no edema Gastrointestinal (Abdomen): Inspection/Auscultation: abdomen not distended Neurologic: CN's II-XI intact bilaterally and moves all extremities; no focal motor deficits Psychiatric: A+Ox3, euthymic affect Results & Data Vital Signs (Past 12 Hours) Vital Signs Temp Pulse Pulse Resp BP BP Pulse Ox 05/20/23 11:16 67 05/20/23 10:57 68 17 122/70 94 05/20/23 10:30 68 18 120/69 96 05/20/23 10:04 70 19 120/69 95 05/20/23 09:50 66 20 113/75 96 05/20/23 09:36 76 18 109/63 109/63 98 05/20/23 09:17 36.4 C L 60 18 122/61 98 05/20/23 09:00 67 20 116/61 96 05/20/23 08:45 64 20 112/63 94 05/20/23 07:14 69 21 160/82 H 96 05/20/23 03:00 36.5 C 60 17 120/75 96 O2 Del Method 05/20/23 11:16 05/20/23 10:57 Room Air 05/20/23 10:30 Room Air 05/20/23 10:04 Room Air 05/20/23 09:50 Room Air 08/21/23 09:36 Room Air 05/20/23 09:17 Room Air 05/20/23 09:00 Room Air 05/20/23 08:45 Room Air 05/20/23 07:14 Room Air 05/20/23 03:00 Room Air Laboratory Results Cardiac Enzymes 05/20/23 Range/Units 05:57 AST 15 (13-39) U/L CBC 05/20/23 Range/Units 05:57 WBC 6.65 (4.8-10.8) K/ul RBC 4.34 (4.20-5.40) M/uL Hgb 13.9 (12.0-16.0) g/dl Hct 40.7 (37.0-47.0) % Plt Count 211 (130-400) K/uL Comprehensive Metabolic Panel 05/20/23 Range/Units 05:57 Sodium 139 (136-145) mmol/L Potassium 4.3 (3.5-5.1) mmol/L Chloride 103 (98-107) mmol/L Carbon Dioxide 30 (21-32) mmol/L BUN 18 (6-23) mg/dl Creatinine 0.58 L (0.6-1.2) mg/dl Glucose 94 (70-99(Fasting)) mg/dl Calcium 9.5 (8.6-10.3) mg/dl AST 15 (13-39) U/L ALT 10 (7-52) U/L Alkaline Phosphatase 62 (34-104) U/L Total Protein 7.1 (6.0-8.3) gm/dl Albumin 4.0 (3.4-5.0) gm/dl Intake and Output 05/19/23 05/20/23 05/20/23 22:59 06:59 14:59 Intake Total 460 / 860 Output Total 1200 / 3000 300 / 3000 Balance -740 / -2140 -300 / -2140 Intake: Oral 460 / 860 Output: Urine 1200 / 3000 300 / 3000 Other: Weight 81.5 kg Weight Measurement Method Standing Scale
--- NOTE | 2023-05-20 17:17 | Discharge Summary ---
Date of Service May 20, 2023 Admission HPI Per Admitting Provider 72 y/o with PMHx of severe aortic stenosis, hypothyroidism, and arthritis who presented with chest pain. The chest pain woke her from sleep around 3:30 am with associated SOB. The pain is substernal and radiates through to the back, described as sharp. Patient waited approximately an hour for symptoms to self resolve, since they didn't she then presented to the ED. In the ED she was given 423 mg ASA, zofran, and famotidine. Labs notable for an elevated troponin at 40.5. EKG shows new Q wave in lead III. No ST segment changes. Upon my interview patient reports constant substernal chest pain with radiation to the back described as 3-4/10 in severity. Increases to 7/10 in severity with deep breathing. Patient with no proceeding anginal symptoms. No previous CP at rest or with exertion. Patient does have MCDANIEL. No leg swelling. No nausea, vomiting, abdominal pain. No dizziness or lightheadedness. No diaphoresis or clamminess. No prior cardiac history. No HLD HTN DM. No previous GERD symptoms. Chart review notable for a family history of [place] in mother and both brothers < 40 years old. Aortic Stenosis: ECHO 01/2023 - moderate . Asymptomatic - not limiting ADLs Principal Diagnosis chest pain, negative left heart cath for occlusive disease Discharge Exam Patient was seen prior to discharge she achieved hemostasis at her catheterization site she is ambulating about her room without difficulty Discharge Data Allergies Allergy/AdvReac Type Severity Reaction Status Date / Time acetaminophen [From Vicodin] Allergy Severe Rash Verified 02/13/23 08:56 aspirin Allergy Severe Chest Pain Verified 02/13/23 08:56 hydrocodone [From Vicodin] Allergy Severe Rash Verified 02/13/23 08:56 Consultations 05/17/23 11:40 ED Decision to Admit Stat 05/17/23 15:16 Consult Cardiology Routine Procedures Performed Operation Date: 05/20/23 08:00 Actual Procedures p Cineradiography w/Routine Exam - Miguelangel Lloyd DO p Cath, Left with Cors and Vent - Miguelangel Lloyd DO Ordered Studies 05/20/23 07:41 CL Cath Imgs for PACS use only Routine Hospital Course (1) Chest pain: 72 y/o with PMHx of moderate aortic stenosis, hypothyroidism, and arthritis who presented with chest pain admitted for ACS r/o. possible unstable angina HsTrop 40.5-37-36. Minimal risk factors - , has family history. D dimer is negative, respiratory biofire is negative ECHO preserved EF, Moderate Consult Dr. Llyod ([facility]) recommends left heart cath on 05/20, left heart cath with non occlusive disease, recommending lifestyle modification and continue metoprolol 25 bid (2) Restless legs syndrome: patient on clonazepam 0.5 mg PRN at home for RLS. Can continue (3) Hypothyroidism: Stable on levothyroxine 100 mcg. Continue home med Total Time Total Time Spent Total Time Spent (In Minutes): It required greater than 30 minutes to prepare this patient for discharge Discharge Plan Discharge Items Patient Disposition: Home - Self-Care Reason For Visit: CHEST PAIN Discharge Diagnosis: chest pain, left cardiac cath with non occlusive disease Activity: Per Instructions section Non-emergency contact: Primary Care Provider and Clinical Trials Manager Call non-emergency contact if: your symptoms worsen Follow-up/Referrals: Puja Mcrae MD [Primary Care Provider] - Thong Cormier DO [Clinical Trials Manager] - Diet: Heart Healthy and Low Sodium (2gm) Addtl Attending Provider Instructions: ACTIVITY RECOMMENDATIONS: Excess manipulation of the wrist should be avoided for the next 24-48 hours. * No lifting over 2 pounds (approximately a 1/2 gallon of milk) with the utilized arm for 24 hours. * No strenuous activity such as bowling or tennis for 3 days. * Keep the site of the procedure covered with a bandage for 24 hours. *You may shower the day after the procedure. Do not take a tub bath or submerge the puncture site in water for the next 3 days. *Do not operate any motorized equipment for 3 days. SPECIAL CARE INSTRUCTIONS: The site may be slightly bruised and sore following your procedure. Should any of the following occur, contact the DrRaul who performed your procedure. 1. Redness/inflammation, swelling, chills, or fever, or colored drainage at procedure site within 3-7 days after your procedure. 2. Coldness, discoloration, ongoing numbness, severe pain, or swelling. Expect mild tingling of hand and tenderness at the puncture site for up to three days. If this persists beyond three days, or other symptoms develop, notify the Dr. who performed your procedure. BLEEDING: If the procedure site on your wrist begins to bleed, do not panic 1. Place 1 or 2 fingers firmly just slightly above the insertion site to stop the bleeding. You may be able to feel your pulse as you hold pressure. 2. Lift your finger after 5 minutes to see if the bleeding has stopped. 3. Once the bleeding has stopped, gently wipe the wrist area clean with a bandage. * If the bleeding from your wrist does not stop after 10 minutes, or if there is a large amount of bleeding or spurting, call 911 (do not drive yourself to the hospital). SKIN IRRITATION: * You may experience some redness and/or swelling in the area where radiation was administered. If any skin irritation occurs, please contact your family physician. FOLLOW UP VISIT: Keep any scheduled doctor appointments. Pending Studies at Discharge: No Stand-Alone Forms: My [facility], Smoking Cessation Medications and DC Order Prescriptions: New metoprolol tartrate 25 mg Tablet 25 mg PO BID Qty: 60 3RF Continued clonazepam 0.5 mg tablet 0.5 mg PO .COMPLEX Qty: 30 0RF Rx Instructions: 0.5 mg PO Take 1/2 to 1 tablet daily as needed for RLS; levothyroxine 100 mcg tablet 100 mcg PO 6XWK Qty: 90 3RF Rx Instructions: TAKES EVERYDAY EXCEPT SUNDAYS tramadol 50 mg tablet 25 mg PO BID Qty: 30 0RF Rx Instructions: half a tab with breakfast and then bedtime cholecalciferol (vitamin D3) 50 mcg (2,000 unit) capsule 50 mcg PO DAILY Qty: 90 3RF Rx Instructions: with heaviest meal of the day acetaminophen [Tylenol 8 Hour] 650 mg tablet extended release 650 mg PO QDL cyanocobalamin (vitamin B-12) [Vitamin B-12] 1,000 mcg Tablet 1,000 mcg PO QAM Discharge Orders: Discharge Order (Routine); Ordered 05/20/23 Ordered By: Miguelangel Nuno Admission Data Admit Date/Time: 05/17/23 12:19 Attending Provider: Miguelangel Nuno Admit Provider: Jaylan Miller Primary Care Provider: Puja Mcrae V. Other Providers: Jaylan Miller ; Miguelangel Lloyd Other Interventions: Discharge Summary Assessment (RN) Last Done: 05/20/23 16:29 Coding Level of Care Code 71650 INP/OBS DISCH >30 MIN Diagnoses Chest pain R07.9 Restless legs syndrome G25.81 Hypothyroidism E03.9
== END 2023-05-20 17:33 | disposition home or self-care (01) | DRG 287 ==
LOC: ED 09:07 → 2E 12:19 → SUATTDRO 12:19 → 2E 14:40